=== PATIENT | male | born 1975 | race Caucasian/White ===

== ENCOUNTER 2023-05-06 12:25 | Inpatient (IN) | payer OTHER, SELFPAY ==
[2023-05-06] VITALS (8 sets, daily range): BP systolic 106–146; BP diastolic 46–87; PULSE 100; RESP 18; TEMP 36.4–37.4; O2SAT 90–96; BMI 35.5; BMI 31.9
--- NOTE | 2023-05-06 12:33 | ED.GENADUL1 ---
HPI - General Adult General Chief complaint: Weakness Stated complaint: unable to care for self Time Seen by Provider: 05/06/23 12:32 Source: patient Mode of arrival: ambulance History of Present Illness HPI narrative: this patient was brought to us from his home by paramedics. They received a call from his who said that she couldn't handle him anymore at home. We do not have any old records on this patient. Historically he says he has known kidney cancer with metastasis. He's been at other [facility] hospitals and we'll try to get records from there. I asked him if he fell today and he said he did not fall. They have a mattress on the floor for him and he is comfortable there and he was watching television. Apparently he wanted to try to get back up to his chair and his says she just can't do it because he's to large of a minivan. So essentially he has no complaints. He did have back surgery at the [facility] previously and was at a care facility for a while but is now home, were awaiting his 's arrival to [facility] on the details and we'll try to get other medical records, at this time he has no complaints. We were able to obtain records from [facility] from March 19. Discharge diagnosis at that time was bilateral leg weakness with compression of spinal cord with myelopathy. 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 Related Data Home Medications Medication Instructions Recorded Confirmed furosemide 40 mg tablet 40 mg PO DAILY 05/06/23 05/06/23 levothyroxine 50 mcg tablet 50 mcg PO DAILY 05/06/23 05/06/23 lisinopril 20 mg tablet 20 mg PO DAILY 05/06/23 05/06/23 morphine 15 mg tablet,extended 45 mg PO Q12H 05/06/23 05/06/23 release oxycodone 10 mg tablet 10 mg PO DAILY 05/06/23 05/06/23 potassium chloride 20 mEq 20 meq PO DAILY 05/06/23 05/06/23 tablet,extended release(part/cryst) rivaroxaban 20 mg tablet (Xarelto) 20 mg PO DAILY 05/06/23 05/06/23 sodium chloride 1,000 mg soluble 1,000 mg PO DAILY 05/06/23 05/06/23 tablet Allergies Allergy/AdvReac Type Severity Reaction Status Date / Time Penicillins Allergy Severe Verified 05/06/23 12:27 [facility] Medical History (Updated 05/06/23 @ 14:55 by Karel Taylor MD) Surgical History (Updated 05/06/23 @ 12:55 by Rebecca Goel) Exam Narrative Exam Narrative: patient is awake alert oriented ?3 has really no complaints. He has loose fitting dentures and his speech is slightly slurred, it did improve when he had some ice chips. Constitutional he does appear pale but no scleral icterus or jaundice. Neck is soft and supple with no meningeal irritation. Rest. His lungs are clear no wheezes rales or rhonchi. Abdomen is benign he has no peritoneal findings. No guarding rebound or rigidity. Extremities show weakness of the right lower limb he said that is not new. His left Olivares has normal strength. His upper extremities do not have any new neurological findings. Constitutional Vital Signs - 24 hr 05/06/23 12:28 Temperature 97.8 F Pulse Rate [Monitor] 100 H Respiratory Rate 18 Blood Pressure [Right Arm] 138/74 H Pulse Oximetry 93 L Oxygen Delivery Method Room Air Course Vital Signs Vital signs: Vital Signs Temperature 97.8 F 05/06/23 12:28 Pulse Rate 100 H 05/06/23 12:28 Respiratory Rate 18 05/06/23 12:28 Blood Pressure 138/74 H 05/06/23 12:28 Pulse Oximetry 93 L 05/06/23 12:28 Oxygen Delivery Method Room Air 05/06/23 12:28 Temperature 97.8 F 05/06/23 12:28 Pulse Rate 100 H 05/06/23 12:28 Respiratory Rate 18 05/06/23 12:28 Blood Pressure 138/74 H 05/06/23 12:28 Pulse Oximetry 93 L 05/06/23 12:28 Oxygen Delivery Method Room Air 05/06/23 12:28 Medical Decision Making MDM Narrative Medical decision making narrative: this patient and lives at home but has metastatic clear-cell renal carcinoma and is had spinal compression with decompression done at a tertiary facility. He is tried to live with his family at home with his just not able to manage him. Today shows a marked elevation of his calcium and was treated aggressively with infusion of 2 L normal saline. Due to the complexity of his problems hewill be discussed with the on-call hospitalist. He has improved with saline therapy doesn't really have any new problems today. I did speak with Dr. Ritchie and he will admit him here for ongoing care Lab Data Labs: Lab Results 05/06/23 05/06/23 Range/Units 12:25 12:45 WBC 10.0 (4.0-11.0) 10^3/uL RBC 4.36 L (4.70-6.10) 10^6/uL Hgb 11.1 L (14.0-18.0) g/dL Hct 37.0 L (42.0-54.0) % MCV 84.9 (80.0-94.0) fL MCH 25.5 L (25.9-34.0) pg MCHC 30.0 (29.9-35.2) g/dL RDW 18.3 H (11.0-15.0) % Plt Count 213 (150-450) 10^3/uL MPV 9.5 (9.5-13.5) fL Neut % (Auto) 81.9 H (43.0-75.0) % Lymph % (Auto) 6.1 L (20.5-60.0) % [place] % (Auto) 9.9 (1.7-12.0) % Eos % (Auto) 0.5 L (0.9-7.0) % Baso % (Auto) 0.4 (0.2-2.0) % Neut # (Auto) 8.2 H (1.4-6.5) 10^3/uL Lymph # (Auto) 0.6 L (1.2-3.8) 10^3/uL [place] # (Auto) 1.0 H (0.3-0.8) 10^3/uL Eos # (Auto) 0.1 (0.0-0.7) 10^3/uL Baso # (Auto) 0.0 (0.0-0.1) 10^3/uL Abs Immat Gran (auto) 0.12 H (0.00-0.03) 10^3/uL Imm/Tot Granulo (auto) 1.2 H (0.0-0.5) % Sodium 142 (136-145) mmol/L Potassium 3.7 (3.5-5.1) mmol/L Chloride 106 (98-107) mmol/L Carbon Dioxide 29.6 (21.0-32.0) mmol/L Anion Gap 10.1 BUN 19.0 H (7.0-18.0) mg/dL Creatinine 0.78 (0.70-1.30) mg/dL Est GFR ( Amer) >60 (>=60) Est GFR (Non-Af Amer) >60 (>=60) BUN/Creatinine Ratio 24.4 Glucose 107 H (74-106) mg/dL Lactate 1.7 (0.4-2.0) mmol/L Calcium 14.8 H* (8.5-10.1) mg/dL Phosphorus 3.3 (2.6-4.7) mg/dL Magnesium 2.1 (1.8-2.4) mg/dL Total Bilirubin 0.9 (0.2-1.0) mg/dL AST 19 (15-37) U/L ALT 12 L (16-63) U/L Alkaline Phosphatase 145 H (46-116) U/L Total Protein 7.2 (6.4-8.2) g/dL Albumin 3.3 L (3.4-5.0) g/dL Globulin 3.9 g/dL Albumin/Globulin Ratio 0.8 Discharge Plan Discharge Chief Complaint: Weakness Clinical Impression: Hypercalcemia Patient Disposition: Admitted as Observation Time of Disposition Decision: 14:55 Prescriptions / Home Meds: No Action furosemide 40 mg tablet 40 mg PO DAILY levothyroxine 50 mcg tablet 50 mcg PO DAILY lisinopril 20 mg tablet 20 mg PO DAILY morphine 15 mg tablet extended release 45 mg PO Q12H oxycodone 10 mg tablet 10 mg PO DAILY potassium chloride 20 mEq tablet,ER particles/crystals 20 meq PO DAILY Xarelto 20 mg tablet 20 mg PO DAILY sodium chloride 1,000 mg tablet,soluble 1,000 mg PO DAILY Referrals: HOWARD AKERS [Primary Care Provider] - 1 week
[2023-05-06] MEDS: 0.9 % SODIUM CHLORIDE 1,000 ML 999 ML IV (12:56)
[2023-05-06 13:17] LABS: Alanine Aminotransferase 12 U/L (16-63); Albumin Globulin Ratio 0.8; Albumin Level 3.3 g/dL (3.4-5.0); Alkaline Phosphatase 145 U/L (46-116); Anion Gap 10.1; Aspartate Amino Transferase 19 U/L (15-37); BUN Creatinine Ratio 24.4; Bilirubin Total 0.9 mg/dL (0.2-1.0); Carbon Dioxide 29.6 mmol/L (21.0-32.0); Chloride 106 mmol/L (98-107); Estimated GFR (African America >60 (>=60); Estimated GFR (Non-African Ame >60 (>=60); Globulin 3.9 g/dL; Glucose 107 mg/dL (74-106); Magnesium 2.1 mg/dL (1.8-2.4); Phosphorus 3.3 mg/dL (2.6-4.7); Potassium 3.7 mmol/L (3.5-5.1); Sodium 142 mmol/L (136-145); Total Protein 7.2 g/dL (6.4-8.2)
[2023-05-06 13:18] LABS: Basophils Percent Auto 0.4 % (0.2-2.0); Eosinophils Absolute Auto 0.1 10^3/uL (0.0-0.7); Eosinophils Percent Auto 0.5 % (0.9-7.0); Hemoglobin 11.1 g/dL (14.0-18.0); Immature Granulocytes Abs Auto 0.12 10^3/uL (0.00-0.03); Immature Granulocytes Pct Auto 1.2 % (0.0-0.5); Lymphocytes Absolute Auto 0.6 10^3/uL (1.2-3.8); Lymphocytes Percent Auto 6.1 % (20.5-60.0); Mean Corpuscular Hemoglobin 25.5 pg (25.9-34.0); Mean Corpuscular Volume 84.9 fL (80.0-94.0); Mean Platelet Volume 9.5 fL (9.5-13.5); Monocytes Percent Auto 9.9 % (1.7-12.0); Neutrophils Absolute Auto 8.2 10^3/uL (1.4-6.5); Neutrophils Percent Auto 81.9 % (43.0-75.0); Platelet Count 213 10^3/uL (150-450); Red Blood Count 4.36 10^6/uL (4.70-6.10); Red Cell Distribution Width 18.3 % (11.0-15.0)
[2023-05-06 13:20] LABS: Calcium 14.8 mg/dL (8.5-10.1)
[2023-05-06 13:26] LABS: Lactate/Lactic Acid 1.7 mmol/L (0.4-2.0)
[2023-05-06] MEDS: 0.9 % SODIUM CHLORIDE 1,000 ML 1000 ML IV (13:45)
[2023-05-06] MEDS: 0.9 % SODIUM CHLORIDE 1,000 ML 125 ML IV (14:30)
[2023-05-06 14:34] LABS: Calcium 13.3 mg/dL (8.5-10.1)
[2023-05-06] MEDS: MORPHINE SULFATE 15 MG TABLET.ER 45 MG PO (18:05)
[2023-05-06] MEDS: SODIUM CHLORIDE 1,000 MG TABLET 1000 MG PO ×2 (18:51→21:20)
[2023-05-06] MEDS: 0.9 % SODIUM CHLORIDE 1,000 ML 100 ML IV (21:20)
[2023-05-07 04:03] VITALS: BP 134/78; PULSE 101; RESP 18; TEMP 36.8; O2SAT 90
[2023-05-07 04:19] LABS: Basophils Percent Auto 0.3 % (0.2-2.0); Eosinophils Percent Auto 0.4 % (0.9-7.0); Hematocrit 32.7 % (42.0-54.0); Hemoglobin 9.6 g/dL (14.0-18.0); Immature Granulocytes Abs Auto 0.11 10^3/uL (0.00-0.03); Immature Granulocytes Pct Auto 1.2 % (0.0-0.5); Lymphocytes Absolute Auto 0.5 10^3/uL (1.2-3.8); Lymphocytes Percent Auto 5.5 % (20.5-60.0); Mean Corpuscular HGB Conc 29.4 g/dL (29.9-35.2); Mean Corpuscular Hemoglobin 25.2 pg (25.9-34.0); Mean Corpuscular Volume 85.8 fL (80.0-94.0); Mean Platelet Volume 9.5 fL (9.5-13.5); Monocytes Absolute Auto 1.1 10^3/uL (0.3-0.8); Monocytes Percent Auto 11.6 % (1.7-12.0); Neutrophils Absolute Auto 7.4 10^3/uL (1.4-6.5); Platelet Count 170 10^3/uL (150-450); Red Blood Count 3.81 10^6/uL (4.70-6.10); Red Cell Distribution Width 18.2 % (11.0-15.0); White Blood Count 9.2 10^3/uL (4.0-11.0)
[2023-05-07 04:36] LABS: Anion Gap 11.2; BUN Creatinine Ratio 22.5; Calcium 12.5 mg/dL (8.5-10.1); Carbon Dioxide 25.1 mmol/L (21.0-32.0); Chloride 108 mmol/L (98-107); Estimated GFR (African America >60 (>=60); Estimated GFR (Non-African Ame >60 (>=60); Glucose 110 mg/dL (74-106); Potassium 3.3 mmol/L (3.5-5.1); Sodium 141 mmol/L (136-145)
[2023-05-07] MEDS: LEVOTHYROXINE SODIUM 25 MCG TABLET 50 MCG PO (05:57)
[2023-05-07] MEDS: SODIUM CHLORIDE 1,000 MG TABLET 1000 MG PO ×3 (05:57→21:17)
[2023-05-07] MEDS: MORPHINE SULFATE 15 MG TABLET.ER 45 MG PO ×2 (06:02→17:57)
[2023-05-07] MEDS: LISINOPRIL 10 MG TABLET PO (08:28)
[2023-05-07] MEDS: FUROSEMIDE 40 MG TABLET PO (08:28)
[2023-05-07] MEDS: POTASSIUM CHLORIDE 10 MEQ ER TABLET 20 MEQ PO (08:28)
[2023-05-07] MEDS: RIVAROXABAN 20 MG 20 EACH PO (08:30)
[2023-05-07] MEDS: 0.9 % SODIUM CHLORIDE 1,000 ML 100 ML IV ×2 (09:43→19:44)
[2023-05-07 12:48] VITALS: BMI 31.9
--- NOTE | 2023-05-07 13:00 | DIETREC ---
Nutrition Recommendations: Severe malnutrition 1) Add Ensure High Protein, starting with one/day RD following
[2023-05-07 13:08] VITALS: BP 115/65; PULSE 100; RESP 18; TEMP 36.3; O2SAT 90
--- NOTE | 2023-05-07 14:53 | SWNOTE1 ---
YARA met with pt and in room. Pt was at a facility in [place] after he had surgery not long ago at [facility]. Pt and voiced that he had a bad experience at the facility and they dropped him. Pt's did become tearful during assessment and conversation. They took pt out of the facility and have been home for about a week, but voiced cannot care for him at home at this time. Pt does have kidney cancer and it spread to his spine. At this time pt is not walking and needs therapy. He is getting immunotherapy once a month in [place] through [facility]. At this time pt and would like to try to get him into another facility for rehab. Pt has [employer] for insurance. SW has to check which facilities take his insurance. [facility] is running face sheet. YARA has messages out to [facility], and [facility]. SW to continue to try facilities.
--- NOTE | 2023-05-07 16:06 | SWNOTE1 ---
SW did find 3 facilities in this surrounding area that take pt's insurance. They are [facility], [facility], and [facility]. SW reviewed the star ratings from medicare.gov with pt and . At this time they would like either facility in [place] as the top 2 choices and [facility] 3rd. SW is going to have all facilities run the benefits and see if they can accommodate. Once YARA hears back from the facilties, pt and will choose which one they want. Pt is a precert.
--- NOTE | 2023-05-07 16:48 | PM.HP ---
H&P: HPI History of Present Illness Chief complaint: Weakness Narrative: 47 y/o male to ER with weakness. History of clear cell carcinoma of the kidney with metastasis to bone. Recently admitted and to SNF due to weakness. C/o pain in back and spine. Weakness in legs and hard to ambulate. At home laying on floor and not able to get up. Called EMS and brought to ER. Labs showed calcium 14.8. Severe weakness and admitted. Started IV fluids. Calcium remains elevated but improved. Resumed home medication. Pain tolerable. Continues to have weakness. Reports severe pain in back and mets affecting spinal cord. Review of Systems ROS Constitutional Reports: fatigue; Denies: fever, chills or night sweats Cardiovascular Denies: chest pain, palpitations or edema Respiratory Denies: shortness of breath, cough or wheezing Gastrointestinal Denies: abdominal pain, nausea, vomiting or diarrhea Genitourinary Denies: painful urination Musculoskeletal Reports: back pain PFSH PFS Medical History (Updated 05/07/23 @ 16:54 by Eduin Aponte MD) Surgical History (Updated 05/06/23 @ 12:55 by Rebecca Goel) Family History (Updated 05/06/23 @ 15:54 by Evelia Dugan RN) Father Family history of cancer Mother Family history of diabetes mellitus Social History (Updated 05/06/23 @ 15:55 by Evelia Dugan RN) Within the past year, how often did you have a drink containing alcohol: never Score interpretation: A score less than 4 is consistent with normal alcohol consumption. Smoking status: Former smoker Non-prescribed substance use: denies use Gender Identity: male Meds Home Medications and Allergies Home Medications Medication Instructions Recorded Confirmed Type cyclobenzaprine 5 mg tablet 10 mg PO Q8H PRN muscle spasm 05/06/23 05/06/23 History furosemide 40 mg tablet 40 mg PO DAILY 05/06/23 05/06/23 History levothyroxine 50 mcg tablet 50 mcg PO DAILY 05/06/23 05/06/23 History lisinopril 10 mg tablet 10 mg PO DAILY 05/06/23 05/06/23 History lisinopril 20 mg tablet 20 mg PO DAILY 05/06/23 05/06/23 History morphine 15 mg tablet,extended 45 mg PO Q12H 05/06/23 05/06/23 History release oxycodone 10 mg tablet 10 mg PO DAILY 05/06/23 05/06/23 History potassium chloride 20 mEq 20 meq PO DAILY 05/06/23 05/06/23 History tablet,extended release(part/cryst) rivaroxaban 20 mg tablet (Xarelto) 20 mg PO DAILY 05/06/23 05/06/23 History sodium chloride 1,000 mg soluble 1,000 mg PO TIDWM 05/06/23 05/06/23 History tablet Allergies Allergy/AdvReac Type Severity Reaction Status Date / Time Penicillins Allergy Severe Verified 05/06/23 12:27 Exam Constitutional Vital Signs - 24 hr 05/06/23 19:50 05/06/23 19:50 05/07/23 04:03 Temperature 99.4 F 98.3 F Pulse Rate 100 H 101 H Pulse Rate [Monitor] 100 H Respiratory Rate 18 18 18 Blood Pressure [Right Arm] 146/84 H 134/78 H Pulse Oximetry 90 L 90 L Oxygen Delivery Method Room Air Room Air 05/07/23 13:08 Temperature 97.4 F L Pulse Rate 100 H Pulse Rate [Monitor] Respiratory Rate 18 Blood Pressure [Right Arm] 115/65 Pulse Oximetry 90 L Oxygen Delivery Method Room Air Documenting provider has reviewed patient's vital signs: yes Common normals: no apparent distress, oriented x3 and alert HENMT Common normals: normocephalic Eye Common normals: PERRL and EOMs intact bilaterally Respiratory Common normals: clear to auscultation bilaterally Cardio Common normals: regular rate, regular rhythm, no gallops, no murmurs and no rub GI Common normals: Normal to inspection, nondistended, normoactive bowel sounds present and non-tender Extremity General: no edema Results Labs Labs: Short CBC 05/07/23 Range/Units 04:00 WBC 9.2 (4.0-11.0) 10^3/uL Hgb 9.6 L (14.0-18.0) g/dL Hct 32.7 L (42.0-54.0) % Plt Count 170 (150-450) 10^3/uL BMP 05/07/23 04:00 Sodium 141 Potassium 3.3 L Chloride 108 H Carbon Dioxide 25.1 BUN 16.0 Creatinine 0.71 Glucose 110 H Calcium 12.5 H Assessment and Plan Assessment and Plan (1) Hypercalcemia: (2) Clear cell adenocarcinoma of kidney: (3) Spinal cord compression due to malignant neoplasm metastatic to spine: (4) Malignant neoplasm of kidney metastatic to bone: (5) Hypertension: (6) Generalized weakness: Plan Continue IV fluids and lasix. Continue to monitor labs and calcium. Severe weakness and start PT/OT. Resume home medication including pain meds. Monitor vitals and BP. May need SNF upon discharge if continue to have weakness.
[2023-05-07 19:23] VITALS: RESP 18
[2023-05-07 21:13] VITALS: BP 111/70; PULSE 96; RESP 18; TEMP 37; O2SAT 90
[2023-05-07] MEDS: CYCLOBENZAPRINE HCL 10 MG TABLET PO (23:16)
[2023-05-08 04:52] VITALS: BP 126/80; PULSE 103; RESP 18; TEMP 36.9; O2SAT 90
[2023-05-08] MEDS: SODIUM CHLORIDE 1,000 MG TABLET 1000 MG PO ×2 (05:27→14:37)
[2023-05-08] MEDS: 0.9 % SODIUM CHLORIDE 1,000 ML 100 ML IV ×2 (05:27→14:38)
[2023-05-08] MEDS: MORPHINE SULFATE 15 MG TABLET.ER 45 MG PO ×2 (05:28→17:59)
[2023-05-08] MEDS: LEVOTHYROXINE SODIUM 25 MCG TABLET 50 MCG PO (05:30)
[2023-05-08 05:31] LABS: Basophils Absolute Auto 0.1 10^3/uL (0.0-0.1); Basophils Percent Auto 0.6 % (0.2-2.0); Eosinophils Absolute Auto 0.1 10^3/uL (0.0-0.7); Eosinophils Percent Auto 0.9 % (0.9-7.0); Hematocrit 32.6 % (42.0-54.0); Hemoglobin 9.3 g/dL (14.0-18.0); Immature Granulocytes Abs Auto 0.08 10^3/uL (0.00-0.03); Immature Granulocytes Pct Auto 0.9 % (0.0-0.5); Lymphocytes Absolute Auto 0.5 10^3/uL (1.2-3.8); Lymphocytes Percent Auto 6.1 % (20.5-60.0); Mean Corpuscular HGB Conc 28.5 g/dL (29.9-35.2); Mean Corpuscular Hemoglobin 24.9 pg (25.9-34.0); Mean Corpuscular Volume 87.4 fL (80.0-94.0); Mean Platelet Volume 9.4 fL (9.5-13.5); Monocytes Absolute Auto 0.9 10^3/uL (0.3-0.8); Monocytes Percent Auto 10.2 % (1.7-12.0); Neutrophils Absolute Auto 6.9 10^3/uL (1.4-6.5); Neutrophils Percent Auto 81.3 % (43.0-75.0); Platelet Count 159 10^3/uL (150-450); Red Blood Count 3.73 10^6/uL (4.70-6.10); Red Cell Distribution Width 18.3 % (11.0-15.0); White Blood Count 8.5 10^3/uL (4.0-11.0)
[2023-05-08 05:53] LABS: Anion Gap 12.9; BUN Creatinine Ratio 23.2; Calcium 11.9 mg/dL (8.5-10.1); Carbon Dioxide 23.2 mmol/L (21.0-32.0); Chloride 106 mmol/L (98-107); Estimated GFR (African America >60 (>=60); Estimated GFR (Non-African Ame >60 (>=60); Glucose 111 mg/dL (74-106); Potassium 3.1 mmol/L (3.5-5.1); Sodium 139 mmol/L (136-145)
[2023-05-08] MEDS: LISINOPRIL 10 MG TABLET PO (08:54)
[2023-05-08] MEDS: POTASSIUM CHLORIDE 10 MEQ ER TABLET 20 MEQ PO (08:54)
[2023-05-08] MEDS: FUROSEMIDE 40 MG TABLET PO (08:54)
[2023-05-08] MEDS: RIVAROXABAN 20 MG 20 EACH PO (08:55)
--- NOTE | 2023-05-08 10:34 | SWNOTE1 ---
YARA spoke with Frances at [facility] and she does not think they can accommodate pt due to his insurance. YARA emailed Hiwot at [facility], but no response. YARA spoke with pt's and pt in room. Pt's daughter does work close to [facility] in [place] and they would like to wait and see if [facility] can accept. YARA let them know about [facility] and [facility]. YARA did call [facility] and they will call back once out of meeting. Evelia from from [facility] called YARA back and the SOUNDING DEVICE OPERATOR is reviewing referral and she will call back once they have an answer.
[2023-05-08] MEDS: ENSURE CLEAR 237 ML LIQUID PO (11:10)
--- NOTE | 2023-05-08 11:26 | CM.NOTE ---
Rounds made with Dr. Aponte, pt will go skilled at discharge. Pt and will decided today which facility they choose for discharge.
--- NOTE | 2023-05-08 11:38 | PM.PN ---
Progress Note: Subjective Subjective Interval history: Patient slightly improved this am. Continues to have pain in back and abdomen but tolerable with medication. Labs show improved calcium. Continues to have severe weakness and hard to move. Afebrile. Decreased appetite and not hungry. No nausea or emesis. No chest pain or palpitations. No SOB or cough. Exam Constitutional Vital Signs - 24 hr 05/07/23 13:08 05/07/23 19:23 05/07/23 21:13 Temperature 97.4 F L 98.6 F Pulse Rate 100 H 96 H Respiratory Rate 18 18 18 Blood Pressure [Right Arm] 115/65 111/70 Pulse Oximetry 90 L 90 L Oxygen Delivery Method Room Air 05/08/23 04:52 Temperature 98.5 F Pulse Rate 103 H Respiratory Rate 18 Blood Pressure [Right Arm] 126/80 H Pulse Oximetry 90 L Oxygen Delivery Method Documenting provider has reviewed patient's vital signs: yes Common normals: no apparent distress, oriented x3 and alert HENMT Common normals: normocephalic Eye Common normals: PERRL and EOMs intact bilaterally Respiratory Common normals: clear to auscultation bilaterally Cardio Common normals: regular rate, regular rhythm, no gallops, no murmurs and no rub GI Common normals: soft to palpation Auscultation: normoactive bowel sounds Palpation: tender (Mild diffuse TTP); no guarding Extremity General: no edema Progress Note: Objective Labs Labs: Short CBC 05/08/23 Range/Units 04:30 WBC 8.5 (4.0-11.0) 10^3/uL Hgb 9.3 L (14.0-18.0) g/dL Hct 32.6 L (42.0-54.0) % Plt Count 159 (150-450) 10^3/uL BMP 05/08/23 04:30 Sodium 139 Potassium 3.1 L Chloride 106 Carbon Dioxide 23.2 BUN 13.0 Creatinine 0.56 L Glucose 111 H Calcium 11.9 H Progress Note: A&P Assessment and Plan (1) Hypercalcemia: (2) Clear cell adenocarcinoma of kidney: (3) Spinal cord compression due to malignant neoplasm metastatic to spine: (4) Malignant neoplasm of kidney metastatic to bone: (5) Hypertension: (6) Generalized weakness: Plan Calcium improved and continue fluids and lasix. Monitor labs. Severe weakness and continue PT/OT. Pain tolerable with medication. Add boost BID with meals. Information sent to insurance for precertification for SNF.
--- NOTE | 2023-05-08 13:52 | SWNOTE1 ---
[facility] is able to accept. YARA spoke with pt and in room. They have decided to go with [facility] for pt for rehab. [facility] started precert.
[2023-05-08 14:21] VITALS: BP 107/65; PULSE 98; RESP 18; TEMP 36.6; O2SAT 96
--- NOTE | 2023-05-08 15:04 | SWNOTE1 ---
YARA received phone call from [facility] and they are not able to skill patient as they do not have a skillable diagnosis to submit to the insurance company. YARA called [facility] to see if they are able to submit and have a precert started. Arabella at [facility] will try submitting and let YARA know. YARA updated patient and .
[2023-05-08] MEDS: ACETAMINOPHEN 500 MG TABLET 1000 MG PO (16:26)
[2023-05-08 20:00] VITALS: RESP 18
[2023-05-08 21:30] VITALS: BP 110/65; PULSE 97; RESP 18; TEMP 36.8; O2SAT 90
[2023-05-09] MEDS: 0.9 % SODIUM CHLORIDE 1,000 ML 100 ML IV ×3 (00:38→22:39)
[2023-05-09 05:59] VITALS: BP 106/68; PULSE 98; RESP 18; TEMP 36.8; O2SAT 90
[2023-05-09 06:12] LABS: Basophils Percent Auto 0.5 % (0.2-2.0); Eosinophils Absolute Auto 0.1 10^3/uL (0.0-0.7); Eosinophils Percent Auto 1.4 % (0.9-7.0); Hematocrit 31.7 % (42.0-54.0); Hemoglobin 9.5 g/dL (14.0-18.0); Immature Granulocytes Abs Auto 0.07 10^3/uL (0.00-0.03); Immature Granulocytes Pct Auto 0.8 % (0.0-0.5); Lymphocytes Absolute Auto 0.5 10^3/uL (1.2-3.8); Lymphocytes Percent Auto 5.7 % (20.5-60.0); Mean Corpuscular Hemoglobin 25.1 pg (25.9-34.0); Mean Corpuscular Volume 83.9 fL (80.0-94.0); Mean Platelet Volume 9.4 fL (9.5-13.5); Monocytes Absolute Auto 0.9 10^3/uL (0.3-0.8); Monocytes Percent Auto 10.4 % (1.7-12.0); Neutrophils Absolute Auto 6.9 10^3/uL (1.4-6.5); Neutrophils Percent Auto 81.2 % (43.0-75.0); Platelet Count 162 10^3/uL (150-450); Red Blood Count 3.78 10^6/uL (4.70-6.10); Red Cell Distribution Width 18.2 % (11.0-15.0); White Blood Count 8.6 10^3/uL (4.0-11.0)
[2023-05-09] MEDS: MORPHINE SULFATE 15 MG TABLET.ER 45 MG PO ×2 (06:21→17:55)
[2023-05-09] MEDS: LEVOTHYROXINE SODIUM 25 MCG TABLET 50 MCG PO (06:25)
[2023-05-09] MEDS: SODIUM CHLORIDE 1,000 MG TABLET 1000 MG PO ×3 (06:29→21:14)
[2023-05-09 06:31] LABS: Anion Gap 11.2; BUN Creatinine Ratio 18.6; Carbon Dioxide 23.8 mmol/L (21.0-32.0); Chloride 105 mmol/L (98-107); Estimated GFR (African America >60 (>=60); Estimated GFR (Non-African Ame >60 (>=60); Glucose 117 mg/dL (74-106); Sodium 137 mmol/L (136-145)
[2023-05-09 06:32] LABS: Calcium 11.7 mg/dL (8.5-10.1)
[2023-05-09] MEDS: RIVAROXABAN 20 MG 20 EACH PO (08:24)
[2023-05-09] MEDS: LISINOPRIL 10 MG TABLET PO (08:24)
[2023-05-09] MEDS: ENSURE CLEAR 237 ML LIQUID PO (08:24)
--- NOTE | 2023-05-09 09:54 | P.PN_ITS ---
Progress Note: Subjective Subjective Interval history: pain fairly well controlled Still with general weakness which may related to his hypercalcemia Exam Constitutional Vital Signs, click to edit/add: Last Vital Signs Temp 98.2 F 05/09/23 05:59 Pulse 98 H 05/09/23 05:59 Resp 18 05/09/23 05:59 BP 106/68 05/09/23 05:59 Pulse Ox 90 L 05/09/23 05:59 O2 Del Method Room Air 05/09/23 05:59 Documenting provider has reviewed patient's vital signs: yes Common normals: no apparent distress Respiratory Common normals: normal respiratory effort, no retractions, no use of accessory muscles, clear to auscultation bilaterally and percussion normal Cardio Common normals: regular rate, regular rhythm and no murmurs GI Common normals: Normal to inspection, nondistended, normoactive bowel sounds present and soft to palpation Common normals: no CVA tenderness Neuro Common normals: oriented x3 Progress Note: Objective Labs Labs: Short CBC 05/09/23 Range/Units 04:15 WBC 8.6 (4.0-11.0) 10^3/uL Hgb 9.5 L (14.0-18.0) g/dL Hct 31.7 L (42.0-54.0) % Plt Count 162 (150-450) 10^3/uL BMP 05/09/23 04:15 Sodium 137 Potassium 3.0 L Chloride 105 Carbon Dioxide 23.8 BUN 11.0 Creatinine 0.59 L Glucose 117 H Calcium 11.7 H Progress Note: A&P Assessment and Plan (1) Hypercalcemia: (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 We will check ionized calciums in the morning, his calculated calcium and taking into account his albumin is still over 12. Cut back on his diuretics and sometimes that can have an effect. Continue with fluids. We will hold off on protein supplement drink in case that contains some calcium, unable to confirm at this time Metastatic renal cell carcinoma-pain fairly well controlled Hypertension-continue with current medications Anemia of chronic disease related to his cancer with metastases-monitor daily Hypokalemia-Increase supplementation.
--- NOTE | 2023-05-09 11:24 | PT.DAILY ---
Physical Therapy Daily Note PT Daily Note/Assess Start: 05/08/23 11:06 Freq: Status: Active Protocol: Document 05/09/23 10:00 ARNEL (Rec: 05/09/23 11:24 ARNEL [id number]) Physical Therapy Daily Note/Assessment Time In/Time Out Time In 10:00 Time Out 10:25 Pain In Pain N/A Pain Out Pain N/A Subjective Subjective Patient reports back is painful. At rest doing okay still. High pain levels with movement, at times patient even screams out from pain, but is determined to get stronger, and wants to participated and move even through the pain. Therapeutic Exercise Time Therapeutic Exercise Minutes (minutes) 10 Therapeutic Exercise Units 1 Therapeutic Exercise Treatment Therapeutic Exercise Treatment Supine ROM with AAROM on L LE and PROM on R LE. Added red thera-band with L ankle. Therapeutic Activity Time Therapeutic Activity Minutes (minutes) 15 Therapeutic Activity Units 1 Therapeutic Activity Treatment Bed Mobility Ability 2 Person Assist Therapeutic Activity Comments Supine to sit max assist x1, mod assist x1. Once sitting EOB requires min assist to initially gain balance/center, then able to hold self up with close SBA x2. Fatigue after 5 min and patient starts to fall posterior requiring min assist to hold balance. Increase in pain limits sitting time today. Max assist x2 with sit to supine transfer, then max assist x2 to reposition patient in bed. Total Physical Therapy Time Total Therapy Minutes 25 Total Physical Therapy Units 2 Summary Daily Note Summary Patient is very motivated to get stronger and participate with therapy. He works very hard throughout RX. There was some slight improvement with supine to sit transfer today. Pain was more of limiting factor today with EOB sitting vs previous date. Recommend SNF or shelter care at [place] from acute setting.
[2023-05-09] MEDS: POTASSIUM CHLORIDE 10 MEQ ER TABLET 20 MEQ PO ×2 (12:23→16:16)
[2023-05-09 13:30] VITALS: BP 106/63; PULSE 99; RESP 20; TEMP 36.8; O2SAT 90
[2023-05-09 20:00] VITALS: RESP 16
[2023-05-09 21:31] VITALS: BP 106/63; PULSE 103; RESP 18; TEMP 37.3; O2SAT 90
[2023-05-10 05:09] LABS: Basophils Percent Auto 0.5 % (0.2-2.0); Eosinophils Absolute Auto 0.1 10^3/uL (0.0-0.7); Eosinophils Percent Auto 1.6 % (0.9-7.0); Hematocrit 31.6 % (42.0-54.0); Hemoglobin 9.2 g/dL (14.0-18.0); Immature Granulocytes Abs Auto 0.05 10^3/uL (0.00-0.03); Immature Granulocytes Pct Auto 0.6 % (0.0-0.5); Lymphocytes Absolute Auto 0.4 10^3/uL (1.2-3.8); Lymphocytes Percent Auto 5.3 % (20.5-60.0); Mean Corpuscular HGB Conc 29.1 g/dL (29.9-35.2); Mean Corpuscular Hemoglobin 24.9 pg (25.9-34.0); Mean Corpuscular Volume 85.4 fL (80.0-94.0); Mean Platelet Volume 9.6 fL (9.5-13.5); Monocytes Absolute Auto 0.9 10^3/uL (0.3-0.8); Monocytes Percent Auto 10.4 % (1.7-12.0); Neutrophils Absolute Auto 6.7 10^3/uL (1.4-6.5); Neutrophils Percent Auto 81.6 % (43.0-75.0); Platelet Count 167 10^3/uL (150-450); Red Cell Distribution Width 18.1 % (11.0-15.0); White Blood Count 8.2 10^3/uL (4.0-11.0)
[2023-05-10] MEDS: SODIUM CHLORIDE 1,000 MG TABLET 1000 MG PO ×3 (05:13→22:01)
[2023-05-10] MEDS: 0.9 % SODIUM CHLORIDE 1,000 ML 100 ML IV ×3 (05:18→23:55)
[2023-05-10] MEDS: MORPHINE SULFATE 15 MG TABLET.ER 45 MG PO ×2 (05:19→17:23)
[2023-05-10 05:25] VITALS: BP 112/68; PULSE 98; RESP 18; TEMP 36.6; O2SAT 93
[2023-05-10] MEDS: LEVOTHYROXINE SODIUM 25 MCG TABLET 50 MCG PO (05:31)
[2023-05-10 05:40] LABS: Anion Gap 10.3; BUN Creatinine Ratio 15.8; Calcium 11.3 mg/dL (8.5-10.1); Carbon Dioxide 23.1 mmol/L (21.0-32.0); Chloride 108 mmol/L (98-107); Estimated GFR (African America >60 (>=60); Estimated GFR (Non-African Ame >60 (>=60); Glucose 121 mg/dL (74-106); Potassium 3.4 mmol/L (3.5-5.1); Sodium 138 mmol/L (136-145)
[2023-05-10 05:46] LABS: Alanine Aminotransferase 12 U/L (16-63); Albumin Globulin Ratio 0.9; Albumin Level 2.6 g/dL (3.4-5.0); Alkaline Phosphatase 111 U/L (46-116); Aspartate Amino Transferase 17 U/L (15-37); Bilirubin Direct 0.2 mg/dL (0.0-0.2); Bilirubin Total 0.6 mg/dL (0.2-1.0); Total Protein 5.6 g/dL (6.4-8.2)
[2023-05-10] MEDS: POTASSIUM CHLORIDE 10 MEQ ER TABLET 20 MEQ PO ×3 (09:33→17:23)
[2023-05-10] MEDS: PROSTAT 15 GM PROTEIN/100 CAL 30 ML LIQUID PACKET PO ×2 (09:34→22:02)
[2023-05-10] MEDS: RIVAROXABAN 20 MG 20 EACH PO (09:34)
[2023-05-10] MEDS: LISINOPRIL 10 MG TABLET PO (09:34)
--- NOTE | 2023-05-10 10:31 | P.PN_ITS ---
Progress Note: Subjective Subjective Interval history: pain fairly well controlled maybe feels strength some better Exam Constitutional Vital Signs, click to edit/add: Last Vital Signs Temp 97.8 F 05/10/23 05:25 Pulse 98 H 05/10/23 05:25 Resp 18 05/10/23 05:25 BP 112/68 05/10/23 05:25 Pulse Ox 93 L 05/10/23 05:25 O2 Del Method Room Air 05/10/23 05:25 Documenting provider has reviewed patient's vital signs: yes Common normals: no apparent distress Respiratory Common normals: normal respiratory effort, no retractions, no use of accessory muscles, clear to auscultation bilaterally and percussion normal Cardio Common normals: regular rate, regular rhythm and no murmurs GI Common normals: Normal to inspection, nondistended, normoactive bowel sounds present and soft to palpation Common normals: no CVA tenderness Neuro Common normals: oriented x3 Progress Note: Objective Labs Labs: Short CBC 05/10/23 Range/Units 04:20 WBC 8.2 (4.0-11.0) 10^3/uL Hgb 9.2 L (14.0-18.0) g/dL Hct 31.6 L (42.0-54.0) % Plt Count 167 (150-450) 10^3/uL BMP 05/10/23 04:20 Sodium 138 Potassium 3.4 L Chloride 108 H Carbon Dioxide 23.1 BUN 9.0 Creatinine 0.57 L Glucose 121 H Calcium 11.3 H Liver Function 05/10/23 Range/Units 04:40 Total Bilirubin 0.6 (0.2-1.0) mg/dL Direct Bilirubin 0.2 (0.0-0.2) mg/dL AST 17 (15-37) U/L ALT 12 L (16-63) U/L Alkaline Phosphatase 111 (46-116) U/L Albumin 2.6 L (3.4-5.0) g/dL Progress Note: A&P Assessment and Plan (1) Hypercalcemia: (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 We will check ionized calciums in the morning, his calculated calcium and taking into account his albumin is still over 12 again today. Cut back on his diuretics and sometimes that can have an effect. Continue with fluids. changed the protein supplement, check on ionized calcium results Metastatic renal cell carcinoma-pain fairly well controlled Hypertension-continue with current medications Anemia of chronic disease related to his cancer with metastases-monitor daily Hypokalemia-Increase supplementation. Need rehab for patient saftey with ambulation - bone mets resulting in easier likelyhood of fx with falls
[2023-05-10 13:50] VITALS: BP 110/69; PULSE 96; RESP 20; TEMP 36.8; O2SAT 90
[2023-05-10 20:00] VITALS: RESP 16
--- NOTE | 2023-05-10 20:46 | PC.NURSE ---
pt is confused at times.
[2023-05-10 21:38] VITALS: BP 116/75; PULSE 100; RESP 18; TEMP 36.9; O2SAT 90
[2023-05-11 05:03] VITALS: BP 107/65; PULSE 99; RESP 18; TEMP 36.6; O2SAT 90
[2023-05-11 05:22] LABS: Alanine Aminotransferase 12 U/L (16-63); Albumin Globulin Ratio 0.9; Albumin Level 2.6 g/dL (3.4-5.0); Alkaline Phosphatase 119 U/L (46-116); Aspartate Amino Transferase 16 U/L (15-37); Bilirubin Direct 0.2 mg/dL (0.0-0.2); Bilirubin Total 0.7 mg/dL (0.2-1.0); Total Protein 5.6 g/dL (6.4-8.2)
[2023-05-11] MEDS: SODIUM CHLORIDE 1,000 MG TABLET 1000 MG PO ×3 (05:56→21:19)
[2023-05-11] MEDS: LEVOTHYROXINE SODIUM 25 MCG TABLET 50 MCG PO (05:56)
[2023-05-11] MEDS: MORPHINE SULFATE 15 MG TABLET.ER 45 MG PO ×2 (05:59→16:54)
[2023-05-11 07:30] LABS: Anion Gap 13.3; BUN Creatinine Ratio 19.1; Calcium 11.2 mg/dL (8.5-10.1); Carbon Dioxide 23.8 mmol/L (21.0-32.0); Chloride 106 mmol/L (98-107); Estimated GFR (African America >60 (>=60); Estimated GFR (Non-African Ame >60 (>=60); Glucose 116 mg/dL (74-106); Potassium 4.1 mmol/L (3.5-5.1); Sodium 139 mmol/L (136-145)
[2023-05-11 07:44] LABS: Hematocrit 30.3 % (42.0-54.0); Mean Corpuscular HGB Conc 29.7 g/dL (29.9-35.2); Mean Corpuscular Hemoglobin 25.5 pg (25.9-34.0); Mean Corpuscular Volume 85.8 fL (80.0-94.0); Mean Platelet Volume 10.2 fL (9.5-13.5); Platelet Count 185 10^3/uL (150-450); Red Blood Count 3.53 10^6/uL (4.70-6.10); Red Cell Distribution Width 18.3 % (11.0-15.0); White Blood Count 8.7 10^3/uL (4.0-11.0)
[2023-05-11 08:20] LABS: Lymphocytes Absolute Manual 0.69 10^3/uL (1.20-3.80); Monocytes Absolute Manual 0.69 10^3/uL (0.30-0.80)
[2023-05-11 08:21] LABS: Anisocytosis 2+
[2023-05-11] MEDS: PROSTAT 15 GM PROTEIN/100 CAL 30 ML LIQUID PACKET PO ×2 (08:53→21:19)
[2023-05-11] MEDS: FERROUS SULFATE 325 MG TABLET PO ×2 (08:53→21:19)
[2023-05-11] MEDS: POTASSIUM CHLORIDE 10 MEQ ER TABLET 20 MEQ PO ×3 (08:53→16:54)
[2023-05-11] MEDS: LISINOPRIL 10 MG TABLET PO (08:53)
[2023-05-11] MEDS: RIVAROXABAN 20 MG 20 EACH PO (08:54)
--- NOTE | 2023-05-11 09:00 | P.PN_ITS ---
Progress Note: Subjective Subjective Interval history: discussed care with family - still looking into [facility] for weakness duet o cancer - good candidate Exam Constitutional Vital Signs, click to edit/add: Last Vital Signs Temp 97.8 F 05/11/23 05:03 Pulse 99 H 05/11/23 05:03 Resp 18 05/11/23 05:03 BP 107/65 05/11/23 05:03 Pulse Ox 90 L 05/11/23 05:03 O2 Del Method Room Air 05/11/23 05:03 Documenting provider has reviewed patient's vital signs: yes Common normals: no apparent distress Respiratory Common normals: normal respiratory effort, no retractions, no use of accessory muscles, clear to auscultation bilaterally and percussion normal Cardio Common normals: regular rate, regular rhythm and no murmurs GI Common normals: Normal to inspection, nondistended, normoactive bowel sounds present and soft to palpation Common normals: no CVA tenderness Neuro Common normals: oriented x3 Progress Note: Objective Labs Labs: Short CBC 05/11/23 Range/Units 04:14 WBC 8.7 (4.0-11.0) 10^3/uL Hgb 9.0 L (14.0-18.0) g/dL Hct 30.3 L (42.0-54.0) % Plt Count 185 (150-450) 10^3/uL BMP 05/11/23 04:14 Sodium 139 Potassium 4.1 Chloride 106 Carbon Dioxide 23.8 BUN 9.0 Creatinine 0.47 L Glucose 116 H Calcium 11.2 H Liver Function 05/11/23 Range/Units 04:14 Total Bilirubin 0.7 (0.2-1.0) mg/dL Direct Bilirubin 0.2 (0.0-0.2) mg/dL AST 16 (15-37) U/L ALT 12 L (16-63) U/L Alkaline Phosphatase 119 H (46-116) U/L Albumin 2.6 L (3.4-5.0) g/dL Progress Note: A&P Assessment and Plan (1) Hypercalcemia: (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 We will check ionized calciums in the morning, his calculated calcium and taking into account his albumin is still over 12 again today. Slowly improving - checking ionized calcium Metastatic renal cell carcinoma-pain fairly well controlled - would be good reha b candidate to improve strength over next 2-03 weeks to limit fall risk Hypertension-continue with current medications Anemia of chronic disease related to his cancer with metastases-monitor daily Hypokalemia-Increase supplementation. Need rehab for patient saftey with ambulation - bone mets resulting in easier likelyhood of fx with falls
--- NOTE | 2023-05-11 09:19 | CM.NOTE ---
Rounds made with Dr. More, pt awaiting approval for skilled therapy at [facility].
[2023-05-11] MEDS: 0.9 % SODIUM CHLORIDE 1,000 ML 100 ML IV (10:28)
--- NOTE | 2023-05-11 11:01 | PC.NURSE ---
Nursing assistance requested RN look at the catheter due to patient complaining of burning. Upon assessment catheter looked to be not draining due to a clot. RN irrigated with 50 ml of saline. One large clot removed with irrigation. Catheter is draining clear , yellow after irrigation.
--- NOTE | 2023-05-11 11:50 | SWNOTE1 ---
YARA sent updates to [facility].
--- NOTE | 2023-05-11 12:12 | DIETREC ---
Nutrition Recommendations: 1. Add Prostat 30 mL BID. Reviewed with RDEvelyn
[2023-05-11 13:28] VITALS: BP 122/75; PULSE 93; RESP 18; TEMP 36.4; O2SAT 91
[2023-05-11 22:00] VITALS: BP 119/74; PULSE 101; RESP 18; TEMP 36.8; O2SAT 91
[2023-05-12] MEDS: 0.9 % SODIUM CHLORIDE 1,000 ML 100 ML IV (01:49)
[2023-05-12] MEDS: LEVOTHYROXINE SODIUM 25 MCG TABLET 50 MCG PO (05:33)
[2023-05-12] MEDS: SODIUM CHLORIDE 1,000 MG TABLET 1000 MG PO ×2 (05:33→15:10)
[2023-05-12] MEDS: MORPHINE SULFATE 15 MG TABLET.ER 45 MG PO (05:35)
[2023-05-12 05:46] VITALS: BP 113/70; PULSE 97; RESP 18; TEMP 36.5; O2SAT 90
[2023-05-12 05:46] LABS: Anion Gap 12.6; BUN Creatinine Ratio 18.2; Calcium 11.3 mg/dL (8.5-10.1); Chloride 105 mmol/L (98-107); Estimated GFR (African America >60 (>=60); Estimated GFR (Non-African Ame >60 (>=60); Glucose 114 mg/dL (74-106); Potassium 4.6 mmol/L (3.5-5.1); Sodium 137 mmol/L (136-145)
[2023-05-12 05:54] LABS: Alanine Aminotransferase 12 U/L (16-63); Albumin Level 2.7 g/dL (3.4-5.0); Alkaline Phosphatase 133 U/L (46-116); Aspartate Amino Transferase 14 U/L (15-37); Bilirubin Direct 0.2 mg/dL (0.0-0.2); Bilirubin Total 0.8 mg/dL (0.2-1.0); Globulin 2.7 g/dL; Total Protein 5.4 g/dL (6.4-8.2)
[2023-05-12 06:44] LABS: Basophils Percent Auto 0.4 % (0.2-2.0); Eosinophils Absolute Auto 0.1 10^3/uL (0.0-0.7); Eosinophils Percent Auto 1.2 % (0.9-7.0); Hematocrit 31.4 % (42.0-54.0); Hemoglobin 9.5 g/dL (14.0-18.0); Immature Granulocytes Abs Auto 0.08 10^3/uL (0.00-0.03); Immature Granulocytes Pct Auto 0.9 % (0.0-0.5); Lymphocytes Absolute Auto 0.4 10^3/uL (1.2-3.8); Lymphocytes Percent Auto 4.8 % (20.5-60.0); Mean Corpuscular HGB Conc 30.3 g/dL (29.9-35.2); Mean Corpuscular Hemoglobin 25.4 pg (25.9-34.0); Mean Platelet Volume 9.6 fL (9.5-13.5); Monocytes Absolute Auto 0.9 10^3/uL (0.3-0.8); Monocytes Percent Auto 10.1 % (1.7-12.0); Neutrophils Absolute Auto 7.5 10^3/uL (1.4-6.5); Neutrophils Percent Auto 82.6 % (43.0-75.0); Platelet Count 202 10^3/uL (150-450); Red Blood Count 3.74 10^6/uL (4.70-6.10); Red Cell Distribution Width 18.4 % (11.0-15.0); White Blood Count 9.1 10^3/uL (4.0-11.0)
[2023-05-12] MEDS: FERROUS SULFATE 325 MG TABLET PO (09:47)
[2023-05-12 09:48] VITALS: BP 112/64
[2023-05-12] MEDS: POTASSIUM CHLORIDE 10 MEQ ER TABLET 20 MEQ PO (09:48)
[2023-05-12] MEDS: LISINOPRIL 10 MG TABLET PO (09:48)
[2023-05-12] MEDS: PROSTAT 15 GM PROTEIN/100 CAL 30 ML LIQUID PACKET PO (09:50)
[2023-05-12] MEDS: RIVAROXABAN 20 MG 20 EACH PO (09:51)
--- NOTE | 2023-05-12 10:28 | CM.NOTE ---
Rounds made with Dr. More, awaiting precert from [facility] for skilled therapy.
--- NOTE | 2023-05-12 10:35 | P.PN_ITS ---
Progress Note: Subjective Subjective Interval history: discussed care with family - still looking into [facility] for weakness duet o cancer - good candidate Exam Constitutional Vital Signs, click to edit/add: Last Vital Signs Temp 97.7 F 05/12/23 05:46 Pulse 97 H 05/12/23 05:46 Resp 18 05/12/23 05:46 BP 112/64 05/12/23 09:48 Pulse Ox 90 L 05/12/23 05:46 O2 Del Method Room Air 05/12/23 05:46 Progress Note: Objective Labs Labs: Short CBC 05/12/23 Range/Units 04:45 WBC 9.1 (4.0-11.0) 10^3/uL Hgb 9.5 L (14.0-18.0) g/dL Hct 31.4 L (42.0-54.0) % Plt Count 202 (150-450) 10^3/uL BMP 05/12/23 04:45 Sodium 137 Potassium 4.6 Chloride 105 Carbon Dioxide 24.0 BUN 8.0 Creatinine 0.44 L Glucose 114 H Calcium 11.3 H Liver Function 05/12/23 Range/Units 04:45 Total Bilirubin 0.8 (0.2-1.0) mg/dL Direct Bilirubin 0.2 (0.0-0.2) mg/dL AST 14 L (15-37) U/L ALT 12 L (16-63) U/L Alkaline Phosphatase 133 H (46-116) U/L Albumin 2.7 L (3.4-5.0) g/dL Progress Note: A&P Assessment and Plan (1) Hypercalcemia: (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 We will check ionized calciums in the morning, his calculated calcium and taking into account his albumin is still over 12 again today. Slowly improving - checking ionized calcium Metastatic renal cell carcinoma-pain fairly well controlled - would be good rehab candidate to improve strength over next 2-03 weeks to limit fall risk Hypertension-continue with current medications Anemia of chronic disease related to his cancer with metastases-monitor daily Hypokalemia-Increase supplementation. Need rehab for patient saftey with ambulation - bone mets resulting in easier likelyhood of fx with falls
--- NOTE | 2023-05-12 11:18 | REH.PTDLY ---
Physical Therapy Daily Note PT Daily Note/Assess Start: 05/08/23 11:06 Freq: Status: Active Protocol: Document 05/12/23 11:13 OTTONELLI (Rec: 05/12/23 11:18 KSTEINELIAS [id number]) Physical Therapy Daily Note/Assessment Time In 10:05 Time Out 10:30 Pain Level 10 Subjective Pt just got pain medicine a little bit ago, reports pain is high all over back especially with movement. Therapeutic Exercise Minutes (minutes) 9 Therapeutic Exercise Units 1 Therapeutic Exercise Treatment Instructed pt in B LE supine exs 10x ea with AA on L LE and PROM on R LE as pt is unable to move this leg. Pt denies any increase in pain with supine exs. Attempted seated LAQ but pt unable. Therapeutic Activity Minutes (minutes) 5 Therapeutic Activity Units 0 Bed Mobility Ability Maximum Assist,2 Person Assist Chair Transfer Ability Maximum Assist,2 Person Assist Therapeutic Activity Comments Supine to sit transfers Max A x2 with pt having increased pain with transfer and when sitting bedside. Cues for sitting balance. Having pt attempt to grab chair in front of him to lean forward some, but this does not help. OT works on sitting balance with pt. Pt sat bedside for 5+ mins and this is the longest he has sat for awhile. Pain starts to become worse so pt returns to supine Max A x2. Total Therapy Minutes 14 Total Physical Therapy Units 1 Daily Note Summary Progressed to longer period of sitting tolerance, pt continues to have high pain levels. Still waiting on insurance for approval to go SNF or long-term somewhere. Pt is unable to go home at this time as he cannot take care of himself nor can his .
[2023-05-12 13:08] LABS: Calcium, Ionized, Serum 6.8 mg/dL (4.5-5.6)
[2023-05-12 13:08] LABS: Calcium, Ionized, Serum 6.8 mg/dL (4.5-5.6)
--- NOTE | 2023-05-12 13:28 | P.DS_ITS ---
DS: Providers Provider Date of admission: 05/06/23 17:37 Primary care physician: HOWARD AKERS Consults: 05/06/23 Consult to Dietitian Routine Reason For Exam: Pooir appetite Consult to Critical Care Nurse Routine Reason for consult:: retirement 05/06/23 17:40 Occupational Therapy Eval and Treat Routine Physical Therapy Eval and Treat Routine 05/07/23 11:29 Occupational Therapy Eval and Treat Routine Physical Therapy Eval and Treat Routine DS: Diagnosis Discharge Diagnosis (1) Hypercalcemia: (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 Metastatic renal cell carcinoma Hypertension Anemia of chronic disease related to his cancer with metastases Hypokalemia Need rehab for patient saftey with ambulation - bone mets resulting in easier likelyhood of fx with falls DS: Summary Hospital Course Hospital Course: Patient with known metastatic renal cell carcinoma presented emergency room with increasing weakness and difficulty ambulating secondary to the weakness. Found to have significant hypercalcemia. He was hydrated tried Lasix and his calcium improved,, leveled out and so we held off on the Lasix give more fluids to try to flush out the calcium, calcium continue to slowly improved. Still with significant weakness. He is an excellent rehab candidate as he is highly motivated to improve his strength to be able to return home. We will start him on Miacalcin nasal spray. His calcium although elevated is no longer critical. His other issue is his hypoalbuminemia which she needs to work on increasing his caloric intake of protein. Patient is stable for discharge to rehab today. Medications see list. Follow-up PCP at discharge. Status at Discharge Functional status at discharge: uses cane/walker Time Spent with Patient Time attestation: Total time spent providing and/or coordinating discharge services: Exam Constitutional Vital Signs, click to edit/add: Last Vital Signs Temp 97.7 F 05/12/23 05:46 Pulse 97 H 05/12/23 05:46 Resp 18 05/12/23 05:46 BP 112/64 05/12/23 09:48 Pulse Ox 90 L 05/12/23 05:46 O2 Del Method Room Air 05/12/23 05:46 Common normals: no apparent distress; negative for average body habitus General appearance: cooperative; not comfortable Chest Common normals: inspection of chest normal Respiratory Common normals: normal respiratory effort, no retractions and clear to auscultation bilaterally Cardio Common normals: no JVD, regular rate and regular rhythm GI Common normals: Normal to inspection, nondistended, normoactive bowel sounds present Neuro Sensorium/orientation: awake, alert, oriented to person, oriented to place and oriented to time; no other (Moderate generalized weakness) Meningeal signs: Brudzinski's sign DS: Data Data Completed and Pending Labs on day of discharge: Labs from last 24 hours 05/12/23 05/11/23 05/10/23 04:45 04:14 08:30 WBC 9.1 RBC 3.74 L Hgb 9.5 L Hct 31.4 L MCV 84.0 MCH 25.4 L MCHC 30.3 RDW 18.4 H Plt Count 202 MPV 9.6 Neut % (Auto) 82.6 H Lymph % (Auto) 4.8 L [place] % (Auto) 10.1 Eos % (Auto) 1.2 Baso % (Auto) 0.4 Neut # (Auto) 7.5 H Lymph # (Auto) 0.4 L [place] # (Auto) 0.9 H Eos # (Auto) 0.1 Baso # (Auto) 0.0 Abs Immat Gran (auto) 0.08 H Imm/Tot Granulo (auto) 0.9 H Sodium 137 Potassium 4.6 Chloride 105 Carbon Dioxide 24.0 Anion Gap 12.6 BUN 8.0 Creatinine 0.44 L Est GFR ( Amer) >60 Est GFR (Non-Af Amer) >60 BUN/Creatinine Ratio 18.2 Glucose 114 H Calcium 11.3 H Ionized Calcium 6.8 H 6.8 H Total Bilirubin 0.8 Direct Bilirubin 0.2 AST 14 L ALT 12 L Alkaline Phosphatase 133 H Total Protein 5.4 L Albumin 2.7 L Globulin 2.7 Albumin/Globulin Ratio 1.0 Discharge Plan Discharge Disposition: Xfer SNF Discharge Medications: New calcitonin (salmon) 200 unit/actuation [place],Non-Aerosol 1 spray intranasal QD Qty: 3.7 11RF ferrous sulfate 325 mg (65 mg iron) Tablet 325 mg PO BID Qty: 60 11RF Pro-Stat Sugar Free 15 gram- 100 kcal/30 mL Liquid In Packet 1 ea PO BID Qty: 2880 11RF morphine 15 mg Tablet Extended Release 45 mg PO Q12H Qty: 180 0RF oxycodone 10 mg Tablet 10 mg PO Q4H MDD 6 PRN (Reason: Pain) Qty: 180 0RF Continued furosemide 40 mg tablet 40 mg PO DAILY Hold Instructions: per levothyroxine 50 mcg tablet 50 mcg PO DAILY lisinopril 20 mg tablet 20 mg PO DAILY Hold Instructions: per Rx Instructions: PER RETAIL FILL HX - PT TAKES BOTH 20MG AND 10MG TABLETS = 30MG (BOTH STRENGTHS LAST FILLED ON 04/06/23) morphine 15 mg tablet extended release 45 mg PO Q12H oxycodone 10 mg tablet 10 mg PO DAILY Rx Instructions: PER RETAIL FILL HX - LAST FILLED 03/06/23 #180 A 30 DAY SUPPLY potassium chloride 20 mEq tablet,ER particles/crystals 20 meq PO DAILY Xarelto 20 mg tablet 20 mg PO DAILY sodium chloride 1,000 mg tablet,soluble 1,000 mg PO TIDWM Rx Instructions: PER RETAIL FILL HX 04/23/23 - 1 PO TID W/MEALS cyclobenzaprine 5 mg tablet 10 mg PO Q8H PRN (Reason: muscle spasm) lisinopril 10 mg tablet 10 mg PO DAILY Rx Instructions: PER RETAIL FILL HX - PT TAKES BOTH 20MG AND 10MG TABLETS = 30MG (BOTH STRENGTHS LAST FILLED ON 04/06/23) 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 Forms: Portal Instructions
[2023-05-12 14:00] VITALS: BP 112/65; PULSE 98; RESP 16; TEMP 36.7; O2SAT 95
--- NOTE | 2023-05-12 14:06 | SWNOTE1 ---
Pt is approved to go to [facility].
--- NOTE | 2023-05-12 14:42 | SWNOTE1 ---
YARA sent over dc med rec and dc summary. YARA set up [facility] and they will be here between 3:45 and 4:00. SW notified nursing, BCC, and patient/. YARA completed HENS. Patient is going skilled to [facility].
== END 2023-05-12 16:35 | DRG 641 ==
LOC: ER 14:55 → MS 15:39
PROVIDERS: Family Medicine; Admitting Provider Family Medicine; Emergency Provider Emergency Medicine Emergency Medical Services; PCP Nurse Practitioner Family; Visit Provider Family Medicine
DX: E83.52 Hypercalcemia (principal); C64.9 Malignant neoplasm of unspecified kidney, except renal pelvis; C79.51 Secondary malignant neoplasm of bone; G95.29 Other cord compression; I10 Essential (primary) hypertension; R53.1 Weakness; D63.8 Anemia in other chronic diseases classified elsewhere; E87.6 Hypokalemia; Z91.81 History of falling; E88.09 Other disorders of plasma-protein metabolism, not elsewhere classified; Z79.890 Hormone replacement therapy; Z79.01 Long term (current) use of anticoagulants; Z79.891 Long term (current) use of opiate analgesic; Z79.899 Other long term (current) drug therapy; Z88.0 Allergy status to penicillin; Z83.3 Family history of diabetes mellitus; Z80.9 Family history of malignant neoplasm, unspecified; Z87.891 Personal history of nicotine dependence
CPT/HCPCS: 36415; 51702; 80048; 80053; 80076; 81003; 82310; 82330; 83605; 83735; 84100; 85007; 85025; 97110; 97163; 97165; 97530; 99285

== ENCOUNTER 2023-05-13 01:35 | Outpatient (REF) | payer OTHER, SELFPAY ==
[2023-05-13 08:32] LABS: Basophils Absolute Auto 0.1 10^3/uL (0.0-0.1); Basophils Percent Auto 0.5 % (0.2-2.0); Eosinophils Absolute Auto 0.1 10^3/uL (0.0-0.7); Eosinophils Percent Auto 1.4 % (0.9-7.0); Hematocrit 33.7 % (42.0-54.0); Hemoglobin 10.1 g/dL (14.0-18.0); Immature Granulocytes Abs Auto 0.13 10^3/uL (0.00-0.03); Immature Granulocytes Pct Auto 1.4 % (0.0-0.5); Lymphocytes Absolute Auto 0.6 10^3/uL (1.2-3.8); Lymphocytes Percent Auto 6.6 % (20.5-60.0); Mean Corpuscular Volume 83.4 fL (80.0-94.0); Mean Platelet Volume 9.6 fL (9.5-13.5); Monocytes Absolute Auto 1.1 10^3/uL (0.3-0.8); Monocytes Percent Auto 11.5 % (1.7-12.0); Neutrophils Absolute Auto 7.2 10^3/uL (1.4-6.5); Neutrophils Percent Auto 78.6 % (43.0-75.0); Platelet Count 218 10^3/uL (150-450); Red Blood Count 4.04 10^6/uL (4.70-6.10); Red Cell Distribution Width 18.4 % (11.0-15.0); White Blood Count 9.2 10^3/uL (4.0-11.0)
[2023-05-13 08:35] LABS: Anion Gap 13.4; BUN Creatinine Ratio 17.8; Calcium 11.7 mg/dL (8.5-10.1); Chloride 101 mmol/L (98-107); Estimated GFR (African America >60 (>=60); Estimated GFR (Non-African Ame >60 (>=60); Glucose 97 mg/dL (74-106); Potassium 4.4 mmol/L (3.5-5.1); Sodium 134 mmol/L (136-145)
== END 2023-05-13 01:36 | disposition home or self-care (01) ==
LOC: LAB 01:35
PROVIDERS: PCP Nurse Practitioner Family; Visit Provider Family Medicine
DX: C64.9 Malignant neoplasm of unspecified kidney, except renal pelvis (principal); C79.51 Secondary malignant neoplasm of bone; E83.52 Hypercalcemia; R60.1 Generalized edema; M47.10 Other spondylosis with myelopathy, site unspecified
CPT/HCPCS: 36415; 80048; 85025

== ENCOUNTER 2023-05-20 20:53 | Observation (INO) | payer OTHER, SELFPAY ==
[2023-05-20] VITALS (16 sets, daily range): BP systolic 67–105; BP diastolic 35–57; PULSE 91–105; RESP 14–37; TEMP 36.5; O2SAT 38–97
--- NOTE | 2023-05-20 21:00 | ECG_ITS ---
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
--- NOTE | 2023-05-20 21:00 | XR_ITS ---
The [address] [address] Patient Name: NOÉ OLIVEIRA MRN: [id number] date: 1975 Sex: M Assigned Patient Location: ER Current Patient Location: ED.MAIN Accession/Order Number: [id number] Exam Date: 05/20/2023 21:20 Report Date: 05/20/2023 21:57 At the request of: ARELIS MARKER Procedure: XR chest 1V EXAM: XR chest 1V HISTORY: SOB history of cancer COMPARISON: Rib study 04/15/2023. TECHNIQUE: AP portable study FINDINGS: There is patchy left perihilar and bibasilar airspace disease. The cardiovascular silhouette is normal. Owens rods bridge the cervical and thoracic spine. The distal right clavicle is diffusely eroded. Similar erosion is seen at the lateral aspect of the left scapula and inferior left glenoid. XR/XR chest 1V IMPRESSION: Patchy left perihilar and bibasilar airspace disease suspicious for multifocal pneumonia. Bony destructive lesions of the right clavicle and left scapula. As correlated with the history of cancer, metastatic disease to bone is suspected. Electronically authenticated by: Ginna LINCOLN Date: 05/20/2023 21:57
[2023-05-20] MEDS: 0.9 % SODIUM CHLORIDE 1,000 ML 1000 ML IV (21:10)
[2023-05-20 21:22] LABS: Basophils Percent Auto 0.4 % (0.2-2.0); Eosinophils Absolute Auto 0.1 10^3/uL (0.0-0.7); Eosinophils Percent Auto 0.7 % (0.9-7.0); Hematocrit 34.1 % (42.0-54.0); Hemoglobin 10.1 g/dL (14.0-18.0); Immature Granulocytes Abs Auto 0.08 10^3/uL (0.00-0.03); Immature Granulocytes Pct Auto 0.7 % (0.0-0.5); Lymphocytes Absolute Auto 0.5 10^3/uL (1.2-3.8); Lymphocytes Percent Auto 4.9 % (20.5-60.0); Mean Corpuscular HGB Conc 29.6 g/dL (29.9-35.2); Mean Corpuscular Hemoglobin 24.6 pg (25.9-34.0); Mean Platelet Volume 8.8 fL (9.5-13.5); Monocytes Absolute Auto 0.9 10^3/uL (0.3-0.8); Monocytes Percent Auto 8.3 % (1.7-12.0); Neutrophils Absolute Auto 9.4 10^3/uL (1.4-6.5); Platelet Count 220 10^3/uL (150-450); Red Blood Count 4.11 10^6/uL (4.70-6.10); Red Cell Distribution Width 18.2 % (11.0-15.0); White Blood Count 11.1 10^3/uL (4.0-11.0)
[2023-05-20 21:40] LABS: Ammonia 15 umol/L (11-32)
[2023-05-20 21:40] LABS: Troponin I High Sensitivity 16.9 pg/mL (4.0-76.1)
--- NOTE | 2023-05-20 22:30 | PC.NURSE ---
patients spo2 on room air observed to be decreasing to 87-89%, attempted repositioning, deep breathing, coughing, all without any change. patient placed on 2L NC and dr marker notified.
[2023-05-20 23:20] LABS: Bilirubin Urine NEGATIVE (NEGATIVE); Blood Urine NEGATIVE (NEGATIVE); Clarity Urine CLEAR (CLEAR); Color Urine LT. YELLOW (YELLOW); Glucose Urine UA NEGATIVE (NEGATIVE); Ketones Urine NEGATIVE (NEGATIVE); Leukocyte Esterase Urine NEGATIVE (NEGATIVE); Nitrite Urine NEGATIVE (NEGATIVE); Protein Urine NEGATIVE (NEG/TRACE); Specific Gravity Urine 1.015 (1.005-1.025); Urobilinogen Urine 0.2 EU/dL (0.2-1.0)
[2023-05-20 23:27] LABS: Bacteria Urine TRACE #/HPF (NONE SEEN); Mucus Urine TRACE (NONE SEEN); RBC Urine 0-2 #/HPF (0-2); Squamous Epithelial Cell Urine FEW #/LPF (NONE/RARE); WBC Urine 0-2 #/HPF (NONE SEEN)
[2023-05-20 23:28] LABS: Cast Seen? SEEN #/LPF (NONE SEEN); Crystals Seen? None Seen #/HPF (None Seen); Hyaline Casts Urine FEW; Urine Culture Indicated NO
--- NOTE | 2023-05-20 23:29 | ED_ITS ---
HPI - General Adult General Chief complaint: Altered Mental Status Stated complaint: CONFUSION Time Seen by Provider: 05/20/23 21:00 History of Present Illness HPI narrative: This 47 year old male with a history of metastatic adenocarcinoma of the kidney who recently underwent spinal surgery at [facility] with Dr Rodarte due to malignant neoplasm that was metastatic to the spine and transferred to a local extended care facility was brought to the emergency department by EMS from the extended care facility for evaluation of generalized weakness and episodes of confusion. According to the extended care facility was brambila and limp. EMS did not find him that way. He does appear to be chronically ill and weak but he is alert and oriented to person and place. He denies any chest pain or shortness of breath. He denies any abdominal pain. He does have back pain after his decompressive back surgery. There was no notable fever. He was placed on oxygen by EMS due to a low pulse ox. I spoke to the Patient's who states that he was diagnosed with the renal cell carcinoma in September 2022. His oncologist is Dr. Hammer at [facility] in [place]. He was formally on Keytruda but that was stopped on March 09. Related Data Home Medications Medication Instructions Recorded Confirmed cyclobenzaprine 5 mg tablet 10 mg PO Q8H PRN muscle spasm 05/06/23 05/20/23 furosemide 40 mg tablet 40 mg PO DAILY 05/06/23 05/20/23 levothyroxine 50 mcg tablet 50 mcg PO DAILY 05/06/23 05/20/23 lisinopril 10 mg tablet 10 mg PO DAILY 05/06/23 05/20/23 lisinopril 20 mg tablet 20 mg PO DAILY 05/06/23 05/20/23 morphine 15 mg tablet,extended 45 mg PO Q12H 05/06/23 05/20/23 release oxycodone 10 mg tablet 10 mg PO DAILY 05/06/23 05/20/23 potassium chloride 20 mEq 20 meq PO DAILY 05/06/23 05/20/23 tablet,extended release(part/cryst) rivaroxaban 20 mg tablet (Xarelto) 20 mg PO DAILY 05/06/23 05/20/23 sodium chloride 1,000 mg soluble 1,000 mg PO TIDWM 05/06/23 05/20/23 tablet gabapentin 300 mg capsule 300 mg PO DAILY 05/20/23 05/20/23 Previous Rx's Medication Instructions Recorded amino acids-protein hydrolysate 15 1 ea PO BID #2,880 mL 05/12/23 gram-100 kcal/30 mL oral liquid pkt (Pro-Stat Sugar Free) calcitonin (salmon) 200 1 spray intranasal QD #3.7 mL 05/12/23 unit/actuation nasal spray ferrous sulfate 325 mg (65 mg 325 mg PO BID #60 tabs 05/12/23 iron) tablet morphine 15 mg tablet,extended 45 mg PO Q12H #180 tabs 05/12/23 release oxycodone 10 mg tablet 10 mg PO Q4H PRN Pain #180 tabs 05/12/23 Allergies Allergy/AdvReac Type Severity Reaction Status Date / Time Penicillins Allergy Severe Verified 05/20/23 21:01 Review of Systems ROS Status of ROS 10 or more systems reviewed and unremarkable except as noted in history and below [facility] Medical History (Updated 05/21/23 @ 06:04 by Hiwot Alonzo MD) Surgical History (Updated 05/06/23 @ 12:55 by Rebecca Goel) Family History (Updated 05/06/23 @ 15:54 by Evelia Dugan RN) Father Family history of cancer Mother Family history of diabetes mellitus Social History (Updated 05/06/23 @ 15:55 by Evelia Dugan RN) Within the past year, how often did you have a drink containing alcohol: never Score interpretation: A score less than 4 is consistent with normal alcohol consumption. Smoking status: Former smoker Non-prescribed substance use: denies use Gender Identity: male Exam Narrative Exam Narrative: Nurses note and vital signs reviewed; Patient is afebrile, he is tachycardic with a pulse of 105 and had a low blood pressure 84/43, he is mildly hypoxic with pulse ox of 94 percent on room air General: Pale but flushed, overweight chronically ill-appearing male, no respiratory distress noted. He is awake alert minimally conversant Skin: Warm, dry,Pale Head: Normocephalic, atraumatic Eye: Normal conjunctiva, no drainage, EOMI. PERRL Ears, Nose, Mouth, and Throat: oral mucosa is dry, pt is edentulous Cardiovascular: Regular Rate and Rhythm S1 and S2, no murmurs rubs or gallops appreciated, pulses are brisk and equal bilaterally in the radial, femoral and dorsalis pedis pulses Respiratory: Patient is in no distress, no accessory muscle use, lungs are clear to auscultation, no wheezing, rales or rhonchi GI: Normal bowel sounds, no tenderness to palpation, no masses appreciated. No rebound, guarding, or rigidity noted. Musculoskeletal: The patient Has diffuse muscle wasting. He has minimal movement of his legs. He is able to move his quadriceps on the left leg and wiggle his toes somewhat and able to move his toes on the right leg but otherwise the extremities are mostly weak and flaccid. 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 He has not had any needs for pain medication. He has had episodes of confusion but for the most part is alert and able to converse. CT scan of the thoracic spine was ordered due to the fact that he had recently had decompressive surgery at the [facility]. I received a call from the radiologist that he has diffuse bone distraction with multiple collapsed vertebrae and The metallic spacer noted at the level of the collapsed T1 vertebrae has been displaced posteriorly into the spinal canal. He also has extensive bone distraction consistent with pathologic fractures involving C4 T1 T3 T4 T7 with complete collapse of T10 and T11-T12 and L1. He has had episodes of hypoxia where he is placed on supplemental oxygen with clinical improvement and has had episodes of hypotension that responded to IV fluid boluses. Vital Signs Vital signs: Vital Signs Temperature 97.7 F 05/20/23 20:55 Pulse Rate 98 H 05/20/23 20:55 Respiratory Rate 14 05/20/23 20:55 Blood Pressure 83/49 L 05/20/23 20:55 Pulse Oximetry 94 L 05/20/23 20:55 Oxygen Delivery Method Room Air 05/20/23 20:55 Temperature 97.7 F 05/20/23 20:55 Pulse Rate 105 H 05/20/23 22:17 Respiratory Rate 25 H 05/20/23 22:17 Blood Pressure 98/57 L 05/21/23 06:00 Pulse Oximetry 94 L 05/20/23 22:29 Oxygen Delivery Method Nasal Cannula 05/20/23 22:29 Oxygen Delivery Flow Rate 2 05/20/23 22:29 Medical Decision Making MDM Narrative Medical decision making narrative: This 47 year old male who was diagnosed with clear cell renal cell carcinoma In September 2022 and had his last immunotherapy treatment on March 09 and underwent an extensive surgery at [facility] due to spinal cord compression due to malignant neoplasm metastatic to the spine And to was recently transferred to an extended care facility due to his 's inability to care for him at home was transferred from the extended care facility for evaluation of weakness and confusion. The patient on arrival appeared weak and pale, he had episodes of hypoxia which responded appropriately to supplemental oxygen. The patient is on pain medication for the back pain that he has. He was mildly hypotensive on arrival an IV was placed and he was given IV fluids with clinical improvement. He had a normal lactic acid. Blood gas showed a mild alkalosis with a pH of 7.503. Pulse ox was notably normal on the ABG. Medical Records Medical records narrative: Medical records that are available in this facility were reviewed. The patient was admitted to this facility due to generalized weakness and back pain. He was found to be hypercalcemic and given Lasix and fluids with clinical improvement. He was transferred to an extended care facility recently due to the fact that his was unable to care for him at home. An EKG done of the right was normal sinus rhythm at 94 bpm. An IV was placed and he was given IV fluids. He denied any chest pain or shortness of breath. His lungs were clear, his abdomen was soft. Of note he is not moving his lower extremities. The patient states he feels like he is moving them but only has mild fasciculations of the left quadriceps and minimal movement of the right lower extremity. Routine labs are reviewed. White count is mildly elevated at 11. Hemoglobin is low at 10.1. Calcium is elevated at 15. Electrolytes are otherwise normal. Troponin is normal. ABG shows a mild alkalosis at 7.509. Chest x-ray showed mild haziness concerning for multifocal pneumonia As well as diffuse erosion of the right distal clavicle and lateral aspect of the left scapula and inferior left glenoid.. He was given IV vancomycin and IV Levaquin for this finding. In light of the fact that the patient recently had spinal surgery at [facility] I ordered a CT scan of the thoracic spine. The findings were extensive bone destruction associated with multiple pathologic fractures worse at the levels of T1 and T7 with complete collapse at the level of C1 there is a metallic spacer which appears to be displaced posteriorly into the canal. There were also extensive bone destruction with consistent with pathologic fractures involving C4, T1, T3, T4 and T7 with complete collapse of T10, T11, T12 and L1. I placed a call to the patient's as I felt she would need to be involved in the further planning and disposition for this patient. I did explain to the patient that his cancer had caused severe bony destruction. The patient's states that she will come to the emergency department after sitting and thinking about things for a while. I discussed hospice with her. She is considering that at this time. I splinted the patient's that I feel that he is not amenable to another surgical procedure due to this severe bony destruction. She was tearful verbalizing that she does not know what to do next besides continued to fight to save the patient's life. Patient's came to the emergency department and we had a very difficult conversation about end-of-life care. She requests that his code status be changed to DNR. I filled out the comfort care arrest paperwork. I discussed with the patient as well. The patient's understands that he is reaching the end of his life with the cancer taking over and requests that he be evaluated by hospice. I will place an order for the social sciences chair to evaluate the patient in the emergency department. Lab Data Labs: Lab Results 05/20/23 05/20/23 05/20/23 Range/Units 01:20 19:10 21:00 WBC 11.1 H (4.0-11.0) 10^3/uL RBC 4.11 L (4.70-6.10) 10^6/uL Hgb 10.1 L (14.0-18.0) g/dL Hct 34.1 L (42.0-54.0) % MCV 83.0 (80.0-94.0) fL MCH 24.6 L (25.9-34.0) pg MCHC 29.6 L (29.9-35.2) g/dL RDW 18.2 H (11.0-15.0) % Plt Count 220 (150-450) 10^3/uL MPV 8.8 L (9.5-13.5) fL Neut % (Auto) 85.0 H (43.0-75.0) % Lymph % (Auto) 4.9 L (20.5-60.0) % Coos % (Auto) 8.3 (1.7-12.0) % Eos % (Auto) 0.7 L (0.9-7.0) % Baso % (Auto) 0.4 (0.2-2.0) % Neut # (Auto) 9.4 H (1.4-6.5) 10^3/uL Lymph # (Auto) 0.5 L (1.2-3.8) 10^3/uL Coos # (Auto) 0.9 H (0.3-0.8) 10^3/uL Eos # (Auto) 0.1 (0.0-0.7) 10^3/uL Baso # (Auto) 0.0 (0.0-0.1) 10^3/uL Abs Immat Gran (auto) 0.08 H (0.00-0.03) 10^3/uL Imm/Tot Granulo (auto) 0.7 H (0.0-0.5) % Puncture Site ABG pH (7.350-7.450) ABG pCO2 (35.0-45.0) mmHg ABG pO2 (80.0-100.0) mmHg ABG HCO3 (22.0-26.0) mmol/L ABG O2 Saturation % ABG Base Excess (-2.0-2.0) mmol/L Paulo Test (POSITIVE) O2 Liters/Min Sodium 130 L (136-145) mmol/L Potassium 4.9 (3.5-5.1) mmol/L Chloride 97 L (98-107) mmol/L Carbon Dioxide 26.4 (21.0-32.0) mmol/L Anion Gap 11.5 BUN 30.0 H (7.0-18.0) mg/dL Creatinine 0.85 (0.70-1.30) mg/dL Est GFR ( Amer) >60 (>=60) Est GFR (Non-Af Amer) >60 (>=60) BUN/Creatinine Ratio 35.3 Glucose 99 (74-106) mg/dL Lactate 1.2 (0.4-2.0) mmol/L Calcium 15.1 H* (8.5-10.1) mg/dL Total Bilirubin 0.6 (0.2-1.0) mg/dL AST 25 (15-37) U/L ALT 14 L (16-63) U/L Alkaline Phosphatase 151 H (46-116) U/L Ammonia 15 (11-32) umol/L Troponin I High Sens (4.0-76.1) pg/mL Total Protein 6.3 L (6.4-8.2) g/dL Albumin 3.0 L (3.4-5.0) g/dL Globulin 3.3 g/dL Albumin/Globulin Ratio 0.9 Urine Color (YELLOW) Urine Clarity (CLEAR) Urine pH (5.0-9.0) Ur Specific Conway (1.005-1.025) Urine Protein (NEG/TRACE) mg/dL Urine Glucose (UA) (NEGATIVE) mg/dL Urine Ketones (NEGATIVE) mg/dL Urine Occult Blood (NEGATIVE) Urine Nitrite (NEGATIVE) Urine Bilirubin (NEGATIVE) Urine Urobilinogen (0.2-1.0) EU/dL Ur Leukocyte Esterase (NEGATIVE) Urine RBC (0-2) #/HPF Urine WBC (NONE SEEN) #/HPF Ur Squamous Epith Cells (NONE/RARE) #/LPF Urine Crystals (None Seen) #/HPF Urine Bacteria (NONE SEEN) #/HPF Urine Casts (NONE SEEN) #/LPF Hyaline Casts Urine Mucus (NONE SEEN) Ur Culture Indicated? 05/20/23 05/20/23 05/21/23 Range/Units 21:10 23:00 00:01 WBC (4.0-11.0) 10^3/uL RBC (4.70-6.10) 10^6/uL Hgb (14.0-18.0) g/dL Hct (42.0-54.0) % MCV (80.0-94.0) fL MCH (25.9-34.0) pg MCHC (29.9-35.2) g/dL RDW (11.0-15.0) % Plt Count (150-450) 10^3/uL MPV (9.5-13.5) fL Neut % (Auto) (43.0-75.0) % Lymph % (Auto) (20.5-60.0) % Coos % (Auto) (1.7-12.0) % Eos % (Auto) (0.9-7.0) % Baso % (Auto) (0.2-2.0) % Neut # (Auto) (1.4-6.5) 10^3/uL Lymph # (Auto) (1.2-3.8) 10^3/uL Coos # (Auto) (0.3-0.8) 10^3/uL Eos # (Auto) (0.0-0.7) 10^3/uL Baso # (Auto) (0.0-0.1) 10^3/uL Abs Immat Gran (auto) (0.00-0.03) 10^3/uL Imm/Tot Granulo (auto) (0.0-0.5) % Puncture Site Right radial ABG pH 7.509 H* (7.350-7.450) ABG pCO2 32.3 L (35.0-45.0) mmHg ABG pO2 86.2 (80.0-100.0) mmHg ABG HCO3 25.7 (22.0-26.0) mmol/L ABG O2 Saturation 98.5 % ABG Base Excess 2.6 H (-2.0-2.0) mmol/L Paulo Test Positive (POSITIVE) O2 Liters/Min 2 Sodium (136-145) mmol/L Potassium (3.5-5.1) mmol/L Chloride (98-107) mmol/L Carbon Dioxide (21.0-32.0) mmol/L Anion Gap BUN (7.0-18.0) mg/dL Creatinine (0.70-1.30) mg/dL Est GFR ( Amer) (>=60) Est GFR (Non-Af Amer) (>=60) BUN/Creatinine Ratio Glucose (74-106) mg/dL Lactate (0.4-2.0) mmol/L Calcium (8.5-10.1) mg/dL Total Bilirubin (0.2-1.0) mg/dL AST (15-37) U/L ALT (16-63) U/L Alkaline Phosphatase (46-116) U/L Ammonia (11-32) umol/L Troponin I High Sens 16.9 (4.0-76.1) pg/mL Total Protein (6.4-8.2) g/dL Albumin (3.4-5.0) g/dL Globulin g/dL Albumin/Globulin Ratio Urine Color Lt. yellow (YELLOW) Urine Clarity Clear (CLEAR) Urine pH 6.0 (5.0-9.0) Ur Specific Conway 1.015 (1.005-1.025) Urine Protein Negative (NEG/TRACE) mg/dL Urine Glucose (UA) Negative (NEGATIVE) mg/dL Urine Ketones Negative (NEGATIVE) mg/dL Urine Occult Blood Negative (NEGATIVE) Urine Nitrite Negative (NEGATIVE) Urine Bilirubin Negative (NEGATIVE) Urine Urobilinogen 0.2 (0.2-1.0) EU/dL Ur Leukocyte Esterase Negative (NEGATIVE) Urine RBC 0-2 (0-2) #/HPF Urine WBC 0-2 A (NONE SEEN) #/HPF Ur Squamous Epith Cells Few A (NONE/RARE) #/LPF Urine Crystals None seen (None Seen) #/HPF Urine Bacteria Trace A (NONE SEEN) #/HPF Urine Casts Seen A (NONE SEEN) #/LPF Hyaline Casts Few Urine Mucus Trace A (NONE SEEN) Ur Culture Indicated? No ECG Data Attestation: I personally reviewed and interpreted this ECG as follows: (Sinus rhythm at 94 beats for minute, low voltage in leads 3 and aVF, no acute ST segment elevation or T-wave inversion) Discharge Plan Discharge Patient Disposition: Still a Patient
[2023-05-20 23:53] LABS: Albumin Globulin Ratio 0.9; Alkaline Phosphatase 151 U/L (46-116); Anion Gap 11.5; Aspartate Amino Transferase 25 U/L (15-37); BUN Creatinine Ratio 35.3; Bilirubin Total 0.6 mg/dL (0.2-1.0); Carbon Dioxide 26.4 mmol/L (21.0-32.0); Chloride 97 mmol/L (98-107); Estimated GFR (African America >60 (>=60); Estimated GFR (Non-African Ame >60 (>=60); Globulin 3.3 g/dL; Glucose 99 mg/dL (74-106); Potassium 4.9 mmol/L (3.5-5.1); Total Protein 6.3 g/dL (6.4-8.2)
[2023-05-20 23:55] LABS: Calcium 15.1 mg/dL (8.5-10.1); Sodium 130 mmol/L (136-145)
[2023-05-21] VITALS (27 sets, daily range): BP systolic 76–109; BP diastolic 37–59; PULSE 94–102; RESP 18; TEMP 36.1–36.5; O2SAT 92–99; BMI 31.9
--- NOTE | 2023-05-21 00:10 | CT_ITS ---
The [address] [address] Patient Name: NOÉ OLIVEIRA MRN: [id number] date: 1975 Sex: M Assigned Patient Location: ER Current Patient Location: Accession/Order Number: [id number] Exam Date: 05/21/2023 00:50 Report Date: 05/21/2023 01:49 At the request of: ARELIS ALONZO Procedure: CT thoracic spine w con INDICATION: 47 years old; Male. Symptom/Location/Duration: History of bone destruction and pathologic fracture post surgery. TECHNIQUE: CT of the thoracic spine was performed. Axial, coronal, sagittal reformats were performed and reviewed. 3-D reformats were performed and reviewed for better evaluation of thoracic spine alignment. IV contrast (Omnipaque 300): 100. No complications. Ionizing radiation dose reduced via iterative reconstruction/FBP blend and body size kV/mA adjustment. COMPARISON: None The examination is degraded by patient motion and is nondiagnostic for the evaluation of the epidural soft tissues, and cord.. Numbering of the levels correspond to the thoracic MRI. FINDINGS: POSTOPERATIVE CHANGES: There is a large posterior pedicle screw and bar construct which extends from C5 through T9. The construct appears intact. There is a metallic spacer noted at the level of the collapsed T1 vertebral body. This is displaced posteriorly into the canal. ALIGNMENT: Loss of normal thoracic kyphosis with angulation deformity at the level of the T1 collapse. No subluxation. VERTEBRAE: There is extensive bone destruction consistent with pathologic fractures involving C4, T1, T3, T4, T7 with complete collapse, T10, T11, T12, and L1. Due to extensive artifacts, evaluation of the epidural and neural foraminal components of the bone destruction are not adequately evaluated. DISC LEVELS: Due to beam hardening artifacts, evaluation of the disc spaces and epidural/perineural tumor is nondiagnostic. Allowing for the presence of bone destruction, there is scattered degenerative changes with disc space narrowing and anterior osteophyte formation. Multilevel facet degeneration is noted. SOFT TISSUES: Poorly evaluated due to artifacts. OTHER: None. CT/CT thoracic spine w con IMPRESSION: 1. Extensive bone destruction associated with multiple pathologic fractures. These are worse at the levels of T1 and T7 with complete collapse. At the level of T1, there is a metallic spacer which appears to be displaced posteriorly into the canal. The study does not visualize the cord or adequately evaluate the epidural soft tissues and the degree of cord compression.. 2. No fracture or bony displacement. A telephone call regarding the findings in examination was made to and acknowledged by Dr. Alonzo in the emergency department at 1:45 AM on 05/21/2023. Electronically authenticated by: AN VAZQUEZ Date: 05/21/2023 01:49
[2023-05-21 00:16] LABS: Alanine Aminotransferase 14 U/L (16-63)
[2023-05-21 00:28] LABS: ABG PCO2 32.3 mmHg (35.0-45.0); HCO3 ABG 25.7 mmol/L (22.0-26.0); PO2 ABG 86.2 mmHg (80.0-100.0); pH ABG 7.509 (7.350-7.450)
[2023-05-21 00:29] LABS: Allen Test POSITIVE (POSITIVE); Base Excess ABG 2.6 mmol/L (-2.0-2.0); Liters per Minute 2; O2 Mode NASAL CANULA; Oxygen Saturation ABG 98.5 %; Puncture Site RIGHT RADIAL
[2023-05-21] MEDS: VANCOMYCIN HCL 500 MG in 0.9 % SODIUM CHLORIDE 250 ML 250 MG IV (01:16)
[2023-05-21] MEDS: 0.9 % SODIUM CHLORIDE 500 ML IV (01:17)
[2023-05-21] MEDS: VANCOMYCIN HCL 1,000 MG in 0.9 % SODIUM CHLORIDE 250 ML 250 MG IV (01:17)
[2023-05-21 01:49] LABS: Lactate/Lactic Acid 1.2 mmol/L (0.4-2.0)
[2023-05-21] MEDS: LEVOFLOXACIN IN DEXTROSE 5 % 750 MG/150 ML IV.SOLN 150 MG IV (06:01)
[2023-05-21] MEDS: 0.9 % SODIUM CHLORIDE 1,000 ML 125 ML IV (06:39)
[2023-05-21] MEDS: 0.9 % SODIUM CHLORIDE 250 ML IV.SOLN 1000 ML IV (08:22)
--- NOTE | 2023-05-21 09:39 | SWNOTE1 ---
YARA consulted to get hospice involved. YARA had email from [facility], pt is there skilled and would have been precert to return skilled. YARA spoke with Dr. martinez in ER and wanting hospice. YRAA spoke with pt's in detail in regards to the options of going to [facility] as private pay, possibility of pt going home with hospice care. Pt's very tearful and unsure what to do as they do not have the funds and she can't care for him at home. YARA received a call from Arabella at [facility] and pt would qualify for the [employer] medicaid program due to his age and pt would not have to pay anything out of pocket. YARA, Arabella, and pt's all spoke over phone together. Pt's tearful and just wants pt to be taken care of. Pt's stated that pt has expressed he is ready to pass. Pt's would like to move forward with getting hospice consulted and applying for the [facility] program. Pt's has no preference on hospice agencies at this time. YARA to bring medicaid application back down and complete with pt's . SW to reach out to hospice as well. Pt will be sent to floor. YARA to assist with hospice, medicaid pavithra, and getting level of care from area office on aging.
[2023-05-21 10:00] LABS: Bilirubin Urine NEGATIVE (NEGATIVE); Blood Urine NEGATIVE (NEGATIVE); Clarity Urine CLEAR (CLEAR); Color Urine LT. YELLOW (YELLOW); Glucose Urine UA NEGATIVE (NEGATIVE); Ketones Urine NEGATIVE (NEGATIVE); Leukocyte Esterase Urine NEGATIVE (NEGATIVE); Nitrite Urine NEGATIVE (NEGATIVE); Protein Urine NEGATIVE (NEG/TRACE); Specific Gravity Urine <=1.005 (1.005-1.025); Urobilinogen Urine 0.2 EU/dL (0.2-1.0); pH Urine 6.5 (5.0-9.0)
[2023-05-21 10:03] LABS: Urine Microscopic Indicated NO
--- NOTE | 2023-05-21 10:06 | SWNOTE1 ---
Referral sent to [facility].
--- NOTE | 2023-05-21 11:33 | CM.NOTE ---
Rounds made with Dr. Valverde. Discussion with and Mr. Morton as to plan. Agreeable to Hospice.
--- NOTE | 2023-05-21 11:46 | P.HP_ITS ---
H&P: HPI History of Present Illness Chief complaint: CONFUSION TERMINAL RENAL CARCIMONA Narrative: patient is a 47-year-old male with past medical history of clear cell adenocarcinoma of the kidney. He was diagnosed in August 2022 with advanced disease including metastasis. His is present on admission exam and states they tried Ketruda without much improvement. He then underwent a palliative care treatment of the spine for his spinal metastasis. For the last week patient has been at [facility] and has been having pain controlled by the snf physician there. He continues to decline continues to have pain in his lower back and receives morphine and oxycodone for this. He was brought to the emergency room last night for altered mental status. Patient was found to have a pneumonia seen on chest x-ray in discussions with the and patient decided for palliative care hospice care. Patient was admitted for hypercalcemia, pneumonia, dehydration and hospice consult and pain control for advanced end stage cancer with mets. Patient signed a DNRCCA order today. Review of Systems ROS Narrative ROS: a complete review of systems were reviewed with patient and are positive as below or listed in History of Chief Complaint. General: no fever, chills, night sweats Head: no headache, trauma, visual changes, nausea or vomiting Skin: no reported rashes, itching or sores Eyes: no blurriness of vision Ears: no reported hearing loss, vertigo, earache, or tinnitus Throat: no sore throat, hoarseness, swelling of neck, or tongue pain Heart: no chest pain Lungs: no shortness of breath or cough GI: no diarrhea or vomiting/nausea Urinary: no urinary urgency, frequency or pain Neuro: no numbness or tingling HEM: no bleeding issues or bruising ENDO: no thyroid problems Psych: no anxiety or depression [facility] Medical History (Updated 05/21/23 @ 11:55 by Veena Valverde DO) Surgical History Family History Father Family history of cancer Mother Family history of diabetes mellitus Social History Within the past year, how often did you have a drink containing alcohol: never Score interpretation: A score less than 4 is consistent with normal alcohol consumption. Smoking status: Former smoker Non-prescribed substance use: denies use Gender Identity: male Meds Home Medications and Allergies Home Medications Medication Instructions Recorded Confirmed Type cyclobenzaprine 5 mg tablet 10 mg PO Q8H PRN muscle spasm 05/06/23 05/20/23 History furosemide 40 mg tablet 40 mg PO DAILY 05/06/23 05/20/23 History levothyroxine 50 mcg tablet 50 mcg PO DAILY 05/06/23 05/20/23 History lisinopril 10 mg tablet 10 mg PO DAILY 05/06/23 05/20/23 History lisinopril 20 mg tablet 20 mg PO DAILY 05/06/23 05/20/23 History morphine 15 mg tablet,extended 45 mg PO Q12H 05/06/23 05/20/23 History release oxycodone 10 mg tablet 10 mg PO DAILY 05/06/23 05/21/23 History potassium chloride 20 mEq 20 meq PO DAILY 05/06/23 05/20/23 History tablet,extended release(part/cryst) rivaroxaban 20 mg tablet (Xarelto) 20 mg PO DAILY 05/06/23 05/20/23 History sodium chloride 1,000 mg soluble 1,000 mg PO TIDWM 05/06/23 05/20/23 History tablet amino acids-protein hydrolysate 15 1 ea PO BID #2,880 mL 05/12/23 Rx gram-100 kcal/30 mL oral liquid pkt (Pro-Stat Sugar Free) calcitonin (salmon) 200 1 spray intranasal QD #3.7 mL 05/12/23 05/20/23 Rx unit/actuation nasal spray ferrous sulfate 325 mg (65 mg 325 mg PO BID #60 tabs 05/12/23 05/20/23 Rx iron) tablet morphine 15 mg tablet,extended 45 mg PO Q12H #180 tabs 05/12/23 05/21/23 Rx release gabapentin 300 mg capsule 300 mg PO DAILY 05/20/23 05/20/23 History oxycodone 10 mg tablet 10 mg PO Q4H PRN Pain 05/21/23 05/21/23 History Allergies Allergy/AdvReac Type Severity Reaction Status Date / Time Penicillins Allergy Severe Verified 05/20/23 21:01 Exam Narrative Exam Narrative: General: Patient is alert, and oriented to person, place and time with normal affect, proper hygiene Skin: skin pallor Head: atraumatic, acephalic Eyes: PERRLA, no nystagmus present, conjunctiva clear, no scleral icterus Ears: normal gross auditory acuity Nose: symmetric, no discharge, no maxillary or frontal sinus tenderness Mouth/Throat: no erythema, exudate, or tonsillar enlargement, normal dentition Neck: no masses palpated, normal thyroid, no JVD or audible carotid bruits Heart: Normal rate and rhythm, no murmurs/rubs/gallops Lungs: no audible wheezes, crackles and normal breath sounds all lung jones Abdomen: Normal audible bowel sounds, no distension, No palpable masses, no organomegaly, no rebound/guarding/ or rigidity Musculoskeletal: no swelling bilateral lower extremities Lymph: no supraclavicular, axillary, or anterior/posterior cervical adenopathy Neuro: CN II-X grossly intact, normal sensation upper and lower extremities Constitutional Vital Signs, click to edit/add: Last Vital Signs Temp 97.7 F 05/20/23 20:55 Pulse 105 H 05/20/23 22:17 Resp 25 H 05/20/23 22:17 BP 95/55 L 05/21/23 10:15 Pulse Ox 94 L 05/20/23 22:29 O2 Del Method Nasal Cannula 05/20/23 22:29 O2 Flow Rate 2 05/20/23 22:29 Results Labs Labs: Short CBC 05/20/23 Range/Units 19:10 WBC 11.1 H (4.0-11.0) 10^3/uL Hgb 10.1 L (14.0-18.0) g/dL Hct 34.1 L (42.0-54.0) % Plt Count 220 (150-450) 10^3/uL BMP 05/20/23 19:10 Sodium 130 L Potassium 4.9 Chloride 97 L Carbon Dioxide 26.4 BUN 30.0 H Creatinine 0.85 Glucose 99 Calcium 15.1 H* Liver Function 05/20/23 Range/Units 19:10 Total Bilirubin 0.6 (0.2-1.0) mg/dL AST 25 (15-37) U/L ALT 14 L (16-63) U/L Alkaline Phosphatase 151 H (46-116) U/L Albumin 3.0 L (3.4-5.0) g/dL Urine 05/20/23 05/21/23 Range/Units 23:00 09:26 Urine Color Lt. yellow Lt. yellow (YELLOW) Urine Clarity Clear Clear (CLEAR) Urine pH 6.0 6.5 (5.0-9.0) Ur Specific [place] 1.015 <=1.005 A (1.005-1.025) Urine Protein Negative Negative (NEG/TRACE) mg/dL Urine Glucose (UA) Negative Negative (NEGATIVE) mg/dL ABG ABG results: 05/21/23 00:01 ABG pH 7.509 H* ABG pCO2 32.3 L ABG pO2 86.2 ABG HCO3 25.7 ABG O2 Saturation 98.5 ABG Base Excess 2.6 H Assessment and Plan Assessment and Plan (1) Spinal cord compression due to malignant neoplasm metastatic to spine: Assessment and Plan: we'll continue to provide patient with morphine and oxycodone as needed. Hospice consult today for further pain management. Patient is currently a DNR CCA (2) Malignant neoplasm of kidney metastatic to bone: Assessment and Plan: continue calcitonin, see #1 (3) Clear cell adenocarcinoma of kidney: Assessment and Plan: end-stage disease, hospice consult and pain control (4) Hypercalcemia: Assessment and Plan: IV fluid hydration and continue intranasal calcitonin, secondary to bone metastasis and breakdown (5) Generalized weakness: Assessment and Plan: continue IV fluid hydration and Levaquin (6) Hypertension: Assessment and Plan: continue home medications Qualifiers: Hypertension type: primary hypertension Qualified Code(s): I10 - Essential (primary) hypertension (7) Hypothyroidism (acquired): Assessment and Plan: continue levothyroxine (8) Community acquired pneumonia of left lower lobe of lung: Assessment and Plan: levaquin daily, duonebs and oxygen as needed. Plan DRNCCA code status continue eliquis for DVT prophylaxis patient is observation status
--- NOTE | 2023-05-21 12:04 | SWNOTE1 ---
YARA assisted pt's with the medicaid application, YARA sent to jobs and family services. YARA did speak with [facility] and they did let SW know we do not need level of care as pt may sign on to hospice and then hospice will take care of this. YARA let Arabella at [facility] know, she also let SW know that level of care is not needed. YARA sent over copy of insurance card, DNR order, and H&P to [facility]. [facility] has to check in to pt's insurance since he is younger and has commercial insurance.
[2023-05-21] MEDS: LACTATED RINGER'S SOLUTION 1,000 ML 100 ML IV ×2 (13:14→22:49)
[2023-05-21] MEDS: OXYCODONE HCL 5 MG TABLET 10 MG PO ×2 (13:14→19:27)
[2023-05-21] MEDS: CYCLOBENZAPRINE HCL 10 MG TABLET PO ×2 (13:14→21:02)
--- NOTE | 2023-05-21 13:45 | SWNOTE1 ---
SW spoke with [facility], they are still working on benefits, but are able to proceed and set up meeting with pt and pt's . They are short staffed today and will plan on coming tomorrow morning, they will be calling to set up time. [facility] also setting up transport for tomorrow afternoon. SW to updated nursing, [facility], and pt/pt's .
--- NOTE | 2023-05-21 15:16 | SWNOTE1 ---
[facility] hospice will be coming at 10:00 on 05/22/23 and they have set up transport with [facility] for 2:00. SW updated nursing and doctor.
[2023-05-21] MEDS: MORPHINE SULFATE 2 MG/ML SYRINGE IV (16:22)
[2023-05-21] MEDS: SODIUM CHLORIDE 1,000 MG TABLET 1000 MG PO (16:22)
[2023-05-21] MEDS: FERROUS SULFATE 325 MG TABLET PO (21:02)
[2023-05-21] MEDS: MORPHINE SULFATE 15 MG TABLET.ER 45 MG PO (21:02)
--- NOTE | 2023-05-21 21:42 | RESP.RT ---
No PRN breathing tx given. Pt sleeping. No respiratory distress noted.
[2023-05-22 04:28] VITALS: O2SAT 94
[2023-05-22 04:47] LABS: Basophils Percent Auto 0.4 % (0.2-2.0); Eosinophils Percent Auto 0.4 % (0.9-7.0); Hematocrit 32.6 % (42.0-54.0); Hemoglobin 9.6 g/dL (14.0-18.0); Immature Granulocytes Abs Auto 0.12 10^3/uL (0.00-0.03); Immature Granulocytes Pct Auto 1.1 % (0.0-0.5); Lymphocytes Absolute Auto 0.4 10^3/uL (1.2-3.8); Lymphocytes Percent Auto 3.4 % (20.5-60.0); Mean Corpuscular HGB Conc 29.4 g/dL (29.9-35.2); Mean Corpuscular Hemoglobin 24.5 pg (25.9-34.0); Mean Corpuscular Volume 83.2 fL (80.0-94.0); Mean Platelet Volume 8.6 fL (9.5-13.5); Monocytes Absolute Auto 0.9 10^3/uL (0.3-0.8); Monocytes Percent Auto 8.7 % (1.7-12.0); Neutrophils Absolute Auto 9.3 10^3/uL (1.4-6.5); Platelet Count 180 10^3/uL (150-450); Red Blood Count 3.92 10^6/uL (4.70-6.10); Red Cell Distribution Width 18.2 % (11.0-15.0); White Blood Count 10.8 10^3/uL (4.0-11.0)
[2023-05-22 05:12] LABS: Alanine Aminotransferase 12 U/L (16-63); Albumin Globulin Ratio 0.9; Albumin Level 2.9 g/dL (3.4-5.0); Alkaline Phosphatase 141 U/L (46-116); Anion Gap 11.1; Aspartate Amino Transferase 20 U/L (15-37); BUN Creatinine Ratio 24.6; Bilirubin Total 0.7 mg/dL (0.2-1.0); Carbon Dioxide 24.5 mmol/L (21.0-32.0); Chloride 102 mmol/L (98-107); Estimated GFR (African America >60 (>=60); Estimated GFR (Non-African Ame >60 (>=60); Globulin 3.1 g/dL; Glucose 104 mg/dL (74-106); Potassium 3.6 mmol/L (3.5-5.1); Sodium 134 mmol/L (136-145)
[2023-05-22 05:21] LABS: Calcium 13.3 mg/dL (8.5-10.1)
[2023-05-22] MEDS: CYCLOBENZAPRINE HCL 10 MG TABLET PO (05:29)
[2023-05-22] MEDS: OXYCODONE HCL 5 MG TABLET 10 MG PO ×2 (05:29→13:06)
[2023-05-22] MEDS: LEVOFLOXACIN IN DEXTROSE 5 % 500 MG/100 ML PIGGYBACK 100 MG IV (05:29)
[2023-05-22] MEDS: LEVOTHYROXINE SODIUM 25 MCG TABLET 50 MCG PO (05:31)
[2023-05-22 05:36] VITALS: BP 103/60; PULSE 104; RESP 18; TEMP 36.5; O2SAT 94
[2023-05-22] MEDS: LACTATED RINGER'S SOLUTION 1,000 ML 100 ML IV (09:18)
[2023-05-22] MEDS: LISINOPRIL 20 MG TABLET PO (09:19)
[2023-05-22] MEDS: FUROSEMIDE 40 MG TABLET PO (09:19)
[2023-05-22] MEDS: RIVAROXABAN 10 MG TABLET 20 MG PO (09:19)
[2023-05-22] MEDS: POTASSIUM CHLORIDE 10 MEQ ER TABLET 20 MEQ PO (09:19)
[2023-05-22] MEDS: MORPHINE SULFATE 15 MG TABLET.ER 45 MG PO (09:19)
[2023-05-22] MEDS: SODIUM CHLORIDE 1,000 MG TABLET 1000 MG PO ×2 (09:19→11:57)
[2023-05-22] MEDS: FERROUS SULFATE 325 MG TABLET PO (09:20)
[2023-05-22] MEDS: GABAPENTIN 300 MG CAPSULE PO (09:20)
--- NOTE | 2023-05-22 09:21 | PM.DS1 ---
DS: Providers Provider Date of admission: 05/21/23 09:45 Primary care physician: HOWARD AKERS Admitting clinician: Veena Valverde Consults: 05/21/23 06:57 Consult to Hospice Routine Consult to Certified Green Building Engineer Routine Reason for consult:: Medical/financial 05/21/23 11:36 Consult to Hospice Routine Attending physician on discharge: Veena Valverde DS: Diagnosis Discharge Diagnosis (1) Spinal cord compression due to malignant neoplasm metastatic to spine: (2) Malignant neoplasm of kidney metastatic to bone: (3) Clear cell adenocarcinoma of kidney: (4) Hypercalcemia: (5) Generalized weakness: (6) Hypertension: Qualifiers: Hypertension type: primary hypertension Qualified Code(s): I10 - Essential (primary) hypertension (7) Hypothyroidism (acquired): (8) Community acquired pneumonia of left lower lobe of lung: DS: Summary Hospital Course Hospital Course: inpatient hospice consult, patient made DNRCCA, pain controlled. Discharged to [facility] with hospice care. eminent and end stage cancer. his pneumonia was treated with levaquin. Sent in 5 day course. to be discharged today under hospice care. Status at Discharge Functional status at discharge: bed bound Overall status at discharge: other Time Spent with Patient Time attestation: Total time spent providing and/or coordinating discharge services: Exam Narrative Exam Narrative: General: Patient is alert, and oriented to person, place and time with normal affect, proper hygiene Skin: skin pallor Head: atraumatic, acephalic Eyes: PERRLA, no nystagmus present, conjunctiva clear, no scleral icterus Heart: Normal rate and rhythm, no murmurs/rubs/gallops Lungs: no audible wheezes, crackles and normal breath sounds all lung jones Abdomen: Normal audible bowel sounds, no distension, No palpable masses, no organomegaly, no rebound/guarding/ or rigidity Musculoskeletal: no swelling bilateral lower extremities Constitutional Vital Signs, click to edit/add: Last Vital Signs Temp 97.7 F 05/22/23 05:36 Pulse 104 H 05/22/23 05:36 Resp 18 05/22/23 05:36 BP 103/60 05/22/23 05:36 Pulse Ox 94 L 05/22/23 05:36 O2 Del Method Room Air 05/22/23 05:36 O2 Flow Rate 2 05/20/23 22:29 DS: Data Data Completed and Pending Labs on day of discharge: Labs from last 24 hours 05/22/23 05/21/23 04:11 09:26 WBC 10.8 RBC 3.92 L Hgb 9.6 L Hct 32.6 L MCV 83.2 MCH 24.5 L MCHC 29.4 L RDW 18.2 H Plt Count 180 MPV 8.6 L Neut % (Auto) 86.0 H Lymph % (Auto) 3.4 L [place] % (Auto) 8.7 Eos % (Auto) 0.4 L Baso % (Auto) 0.4 Neut # (Auto) 9.3 H Lymph # (Auto) 0.4 L [place] # (Auto) 0.9 H Eos # (Auto) 0.0 Baso # (Auto) 0.0 Abs Immat Gran (auto) 0.12 H Imm/Tot Granulo (auto) 1.1 H Sodium 134 L Potassium 3.6 Chloride 102 Carbon Dioxide 24.5 Anion Gap 11.1 BUN 15.0 Creatinine 0.61 L Est GFR ( Amer) >60 Est GFR (Non-Af Amer) >60 BUN/Creatinine Ratio 24.6 Glucose 104 Calcium 13.3 H* Total Bilirubin 0.7 AST 20 ALT 12 L Alkaline Phosphatase 141 H Total Protein 6.0 L Albumin 2.9 L Globulin 3.1 Albumin/Globulin Ratio 0.9 Urine Color Lt. yellow Urine Clarity Clear Urine pH 6.5 Ur Specific [place] <=1.005 A Urine Protein Negative Urine Glucose (UA) Negative Urine Ketones Negative Urine Occult Blood Negative Urine Nitrite Negative Urine Bilirubin Negative Urine Urobilinogen 0.2 Ur Leukocyte Esterase Negative Discharge Plan Discharge Disposition: Hospice - Medical Facility Discharge Medications: New levofloxacin 750 mg tablet 750 mg PO DAILY 5 Days Qty: 5 0RF Continued furosemide 40 mg tablet 40 mg PO DAILY Hold Instructions: per levothyroxine 50 mcg tablet 50 mcg PO DAILY lisinopril 20 mg tablet 20 mg PO DAILY Hold Instructions: per Rx Instructions: PER RETAIL FILL HX - PT TAKES BOTH 20MG AND 10MG TABLETS = 30MG (BOTH STRENGTHS LAST FILLED ON 04/06/23) morphine 15 mg tablet extended release 45 mg PO Q12H oxycodone 10 mg tablet 10 mg PO DAILY Rx Instructions: PER RETAIL FILL HX - LAST FILLED 03/06/23 #180 A 30 DAY SUPPLY potassium chloride 20 mEq tablet,ER particles/crystals 20 meq PO DAILY Xarelto 20 mg tablet 20 mg PO DAILY sodium chloride 1,000 mg tablet,soluble 1,000 mg PO TIDWM Rx Instructions: PER RETAIL FILL HX 04/23/23 - 1 PO TID W/MEALS cyclobenzaprine 5 mg tablet 10 mg PO Q8H PRN (Reason: muscle spasm) lisinopril 10 mg tablet 10 mg PO DAILY Hold Instructions: order Rx Instructions: PER RETAIL FILL HX - PT TAKES BOTH 20MG AND 10MG TABLETS = 30MG (BOTH STRENGTHS LAST FILLED ON 04/06/23) calcitonin (salmon) 200 unit/actuation [place],Non-Aerosol 1 spray intranasal QD Qty: 3.7 11RF ferrous sulfate 325 mg (65 mg iron) Tablet 325 mg PO BID Qty: 60 11RF Pro-Stat Sugar Free 15 gram- 100 kcal/30 mL Liquid In Packet 1 ea PO BID Qty: 2880 11RF morphine 15 mg Tablet Extended Release 45 mg PO Q12H Qty: 180 0RF gabapentin 300 mg capsule 300 mg PO DAILY oxycodone 10 mg Tablet 10 mg PO Q4H MDD 6 PRN (Reason: Pain) Rx Instructions: PER RETAIL FILL HX - LAST FILLED 03/06/23 #180 A 30 DAY SUPPLY Activity Detail: bedbound, hospice at [facility] Diet: advance to your usual diet Apiculturist/Customer Success Advocate Instructions: discharge to [facility] termite exterminator helper with [facility] services. Forms: Portal Instructions
--- NOTE | 2023-05-22 12:14 | SWNOTE1 ---
YARA spoke with pt's , pt sleeping in room. Pt's able to sign paperwork with [facility] and transport is all set at 2:00. YARA sent over dc orders and updated Arabella at [facility]. Pt is going intermodal customer service to [facility] with [facility] services as well.
--- NOTE | 2023-05-22 13:43 | CM.NOTE ---
Rounds made with Dr. Valverde. Plan for discharge is today to return to [facility] with [facility]. in agreement.
== END 2023-05-22 14:10 | disposition hospice, inpatient (51) ==
LOC: ER 05-21 09:35 → MS 05-21 10:39
PROVIDERS: Emergency Medicine Emergency Medical Services; Admitting Provider Family Medicine; Emergency Provider Emergency Medicine; PCP Nurse Practitioner Family; Visit Provider Family Medicine
DX: J18.9 Pneumonia, unspecified organism (principal); E83.52 Hypercalcemia; C64.9 Malignant neoplasm of unspecified kidney, except renal pelvis; C79.51 Secondary malignant neoplasm of bone; G95.29 Other cord compression; R53.1 Weakness; I10 Essential (primary) hypertension; E03.9 Hypothyroidism, unspecified; E86.0 Dehydration; Z66 Do not resuscitate; Z79.890 Hormone replacement therapy; Z79.899 Other long term (current) drug therapy; Z79.01 Long term (current) use of anticoagulants
CPT/HCPCS: 36415; 36600; 51702; 71045; 72129; 80053; 81001; 81003; 82140; 82805; 82948; 83605; 84484; 85025; 87040; 93005; 94761; 96361; 96365; 96366; 96367; 96368; 96375; 99285; G0378; J3370; Q9967